=== PATIENT | female | born 1945 | race Caucasian/White ===

== ENCOUNTER → 2018-07-03 09:07 | Outpatient (CLI) | payer MEDICARE ==
[~2018-07-03] VITALS: Ht 157.5 cm; Wt 59.5 kg
--- NOTE | ~2018-07-03 | HEMODYNAMI ---
PATIENT:NOEMI ROBISON MEDICAL RECORD: [id number] : 47 LOCATION:[facility] ADMISSION DATE: 07/03/18 Generatedon:07/03/201811:25 Patient name: NOEMI ROBISON Patient #: [id number] SSN: DO B: 1945 Date of study: 07/03/2018 Page: Of Hemodynamic Procedure Report Patient Data Patient Demographics Procedure consent was obtained First Name: NOEMI Gender: Female Last Name: RICKI : 1945 Middle Initial: LUTHER Age: 72 year(s) Patient #: [id number] Race: Additional ID: [id number] Contact details [address]: [address] [place] [address] State: [place] City: [place] Zip code: [address] Admission Admission Data Admission Date: 07/03/2018 Admission Time: 9:07 Admit Source: Other Procedure Procedure Types Cath Procedure Diagnostic Procedure LHC LHC w/Coronaries w/Grafts PCI Procedure Coronary Stent Coronary Stent Initial x2 Procedure Description Procedure Date Procedure Date: 07/03/2018 Procedure Start Time: 11:01 Procedure End Time: 11:23 Procedure Staff Name Function Naresh Boone MD Performing Physician Heri Anne RT Monitor Addy Ross RT Scrub Sima Mcdaniel RN Nurse Procedure Data Cath Procedure Fluoroscopy Diagnostic fluoroscopy Total fluoroscopy Time: 6.7 time: 6.7 min min Diagnostic fluoroscopy Total fluoroscopy dose: 644 dose: 644 mGy mGy Contrast Material Contrast Material Type Amount (ml) Isovue 300 146 Entry Location Entry Primary Successful Side Size Upsize Upsize Entry Closure Succes sful Closure Location (Fr) 1 (Fr) 2 (Fr) Remarks Device Remarks Femoral Right 5 Fr 6 Fr Exoseal artery Short Estimated blood loss: 10 ml Diagnostic catheters Device Type Used For End Catheter Placement DIAGNOSTIC JL 4.0 5Fr Procedure catheter ([id number]) DIAGNOSTIC 3DRC 5Fr Procedure catheter ([id number]) DIAGNOSTIC AR2 MOD 5 Fr Procedure catheter ([id number]) Procedure Complications No complications Procedure Medications Medication Administration Route Dosage 0.9% NaCl I.V. 100 ml/hr Oxygen etCO2 Nasal cannula 2 l/min Lidocaine 2% added to field 20 Heparin Flush Bag added to field 2 bags (1000units/500ml NS) Versed I.V. 2 mg Fentanyl I.V. 50 mcg Versed I.V. 2 mg Fentanyl I.V. 50 mcg Heparin Bolus I.V. 4000 units Integrilin (Bolus I.V. 5.6 ml 2mg/ml) Plavix P.O. 600 mg Versed I.V. 1 mg Fentanyl I.V. 50 mcg Hemodynamics Rest Heart Rate: 83 (bpm) Pressure Samples Time Site Value (mmHg) Purpose Heart Use Rate(bpm) 11:03 AO 92/55(70) Snapshot 83 Snapshots Pre Cath Intra NCS Post Cath Vital Signs Time Heart Resp SPO2 etCO2 NIBP (mmHg) Rhythm Pain Sedation Rate (ipm) (%) (mmHg) Status Level (bpm) 10:47:36 67 16 96 40.9 123/75(104) NSR 0 (11) 10(A) , No pain 10:51:43 78 18 100 38.6 118/72(103) NSR 0 (11) 10(A) , No pain 10:55:49 78 12 98 37.8 114/70(90) NSR 0 (11) 10(A) , No pain 10:59:53 73 15 99 22.7 103/66(82) NSR 0 (11) 10(A) , No pain 11:03:52 67 15 96 14.3 97/71(87) NSR 0 (11) 10(A) , No pain 11:07:52 68 13 97 21.9 105/63(86) NSR 0 (11) 10(A) , No pain 11:11:58 70 10 98 21.9 99/58(74) NSR 0 (11) 9(A) , No pain 11:22:06 34 13 98 31.8 123/77(93) NSR 0 (11) 10(A) , No pain Medications Time Medication Route Dose Verified Delivered Reason Notes Effectiveness by by 10:59:34 Versed I.V. 2 mg Naresh Gao for sedation Paolo Mcdaniel RN 10:59:46 Fentanyl I.V. 50 Naresh Sima for sedation mcg Paolo Mcdaniel RN 11:03:05 0.9% NaCl I.V. 100 Naresh Sima used for ml/hr Paolo Mcdaniel physician assistant certified 11:03:12 Oxygen etCO2 2 Naresh Sima used for Nasal l/min Paolo Mcdaniel procedure cannula RN 11:03:17 Lidocaine 2% added 20ml Naresh Naresh for local to vial Paolo Boone MD anesthetic field 11:03:23 Heparin Flush added 2 Naresh Naresh used for Bag to bags Paolo Boone MD procedure (1000units/500ml field NS) 11:04:02 Versed I.V. 2 mg Naresh Sima for sedation Paolo Mcdaniel RN 11:04:11 Fentanyl I.V. 50 Naresh Sima for sedation mcg Paolo Mcdaniel RN 11:09:10 Heparin Bolus I.V. 4000 Naresh Sima for verif ied units Paolo Mcdaniel anticoagulation with Dr. HEBERT Boone 11:09:24 Integrilin I.V. 5.6 Naresh Sima for waste d (Bolus 2mg/ml) ml Paolo Mcdaniel antiplatelet 4.4mL RN therapy 11:09:45 Plavix P.O. 600 Naresh Sima for mg Paolo Mcdaniel antiplatelet RN therapy 11:09:55 Versed I.V. 1 mg Naresh Sima for sedation Paolo Mcdaniel RN 11:09:59 Fentanyl I.V. 50 Naresh Sima for sedation mcg Paolo Mcdaniel geophysical computer Log Time Note 10:38:13 Admit Source: Other 10:38:35 Diagnostic Cath status Elective 10:38:39 Heri Anne RT(R) sent for patient. Start room use. 10:38:40 Time tracking: Regular hours (M-F 7:00 - 5:00) 10:38:44 Plan of Care:Hemodynamics will remain stable., Cardiac rhythm will remain stable., Comfort level will be maintained., Respiratory function will remain adequate., Patient/ family verbilizes understanding of procedure., Procedure tolerated without complication., Recovers from procedure without complications.. 10:41:50 Patient received from Pre/Post Procedure Room to CCL 1 Alert and oriented. Tansferred to table in Supine position. 10:41:52 Warm blankets applied, and aruna hugger turned on for patient comfort. 10:41:52 Correct patient and procedure confirmed by team. 10:41:54 Signed procedure consent form obtained from patient. 10:41:54 ECG and BP/O2 sat monitors applied to patient. 10:46:21 Vital chart was started 10:49:40 Rhythm: sinus rhythm 10:49:42 Full Disclosure recording started 10:49:59 H&P Date Dictated: 06/28/2018 Within 30 days and on chart., H&P Addendum completed by physician on day of procedure. (MUST COMPLETE FOR ALL OUTPATIENTS). 10:50:01 Pre-procedure instructions explained to patient. 10:50:01 Pre-op teaching completed and patient verbalized understanding. 10:50:03 Family in patients room. 10:50:04 Patient NPO since Lunch. 10:50:07 Is the patient allergic to Iodine/contrast media? No. 10:50:19 Patient diabetic? No. 10:50:22 Previous problem with sedation/anesthesia? No ? 10:50:23 Snore? Yes 10:50:26 Sleep apnea? No 10:50:27 Deviated septum? No 10:50:28 Opens mouth fully? Yes 10:50:29 Sticks out tongue? Yes 10:50:34 Airway obstruction? Yes COPD 10:50:42 Dentures? Yes OUT 10:50:49 Is patient on blood thinner?Yes 10:57:55 Last dose of Warfarin was 06/29/18. 10:57:59 Pre procedure: right dorsailis pedis pulse 1+ Palpable, but thready & weak; easily obliterated 10:58:01 Patient pain scale 0/10 ?. 10:58:04 IV patent on arrival in left forearm with 0.9% NaCl at KVO. 10:58:06 Lab results completed and on chart. 10:58:08 Right groin area was prepped with chlora-prep and draped in sterile fashion 10:58:09 Alarms reviewed by R. N. 10:58:09 Sharps counted by scrub and verified by R.N. 10:58:10 --------ALL STOP TIME OUT------ 10:58:11 Final Timeout: patient, procedure, and site verified with staff and physician. All members of the team are in agreement. 10:58:12 Right groin site verified by team. 10:58:15 Maximum allowable Isovue 300 dose 300ml. Physician notified. (300ml for normal creatinines. For patients with creatinine of 1.7 or higher multiply weight(kg) x 5 divided by creatinine.) 10:58:20 Fire Safety Assessment: A--An alcohol-based skin anteseptic being used preoperatively., C--Open oxygen or nitrous oxide is being used., D--An ESU, laser, or fiber-optic light is being used. 10:58:23 Physical assessment completed. ASA score P 2 - A patient with mild systemic disease as per Naresh Boone MD. 10:58:26 Sedation plan: IV Moderate Sedation Medication:Versed, Fentanyl 10:59:34 Versed 2 mg I.V. was administered by Sima Mcdaniel RN; for sedation; 10:59:46 Fentanyl 50 mcg I.V. was administered by Sima Mcdaniel RN; for sedation; 11:01:07 Use device set Femoral Dx 11:01:09 Tegaderm 4 x 4 (1626W) opened to sterile field. 11:01:10 ACIST Manifold (79993) opened to sterile field. 11:01:11 ACIST Hand Control (19997) opened to sterile field. 11:01:11 ACIST Syringe (61736) opened to sterile field. 11:01:12 Bag Decanter () opened to sterile field. 11:01:12 Medline Cath Pack (CQCG06378) opened to sterile field. 11:01:14 DIAGNOSTIC WIRE .035 260cm J wire (007117) opened to sterile field. 11:01:19 SHEATH 5FR Point Arena (IBB010) opened to sterile field. 11:01:36 Procedure started. 11:01:40 Local anesthetic to right femoral artery with Lidocaine 2% by Naresh Boone MD.INITIAL ACCESS ONLY 11:03:01 A 5 Fr sheath was inserted into the Right Femoral artery 11:03:05 0.9% NaCl 100 ml/hr I.V. was administered by Sima Mcdaniel RN; used for procedure; 11:03:09 A DIAGNOSTIC JL 4.0 5Fr catheter ([id number]) was advanced over the wire and used for Procedure. 11:03:12 Oxygen 2 l/min etCO2 Nasal cannula was administered by Sima Mcdaniel RN; used for procedure; 11:03:14 LCA angiography performed. 11:03:17 Lidocaine 2% 20ml vial added to field was administered by Naresh Boone MD; for local anesthetic; 11:03:23 Heparin Flush Bag (1000units/500ml NS) 2 bags added to field was administered by Naresh Boone MD; used for procedure; 11:03:46 Catheter removed. 11:03:49 Use device set [facility] 11:03:51 SHEATH 6FR Point Arena (EQU357) opened to sterile field. 11:03:54 CHOICE PT Extra Support 182cm wire ([id number]) opened to sterile field. 11:03:58 INFLATOR Merit BasixCompak (ST9538) opened to sterile field. 11:04:02 Versed 2 mg I.V. was administered by Sima Mcdaniel RN; for sedation; 11:04:11 Fentanyl 50 mcg I.V. was administered by Sima Mcdaniel RN; for sedation; 11:04:15 A DIAGNOSTIC 3DRC 5Fr catheter ([id number]) was advanced over the wire and used for Procedure. 11:05:07 DE DIOS not grafted. 11:05:10 RCA angiography performed. 11:05:30 Catheter removed. 11:07:20 A DIAGNOSTIC AR2 MOD 5 Fr catheter ([id number]) was advanced over the wire and used for Procedure. 11:07:36 Unable to find grafts. SVG closed. 11:07:42 Catheter removed. 11:07:53 Sheath upsized to a 6 Fr Short. 11:08:03 6 Fr XBLAD 3.5 guide catheter was inserted over the wire 11:08:07 GUIDE 6FR XBLAD 3.5 catheter ([id number]) opened to sterile field. 11:09:10 Heparin Bolus 4000 units I.V. was administered by Sima Mcdaniel RN; for anticoagulation; verified with Dr. Boone 11:09:10 Wire advanced across lesion. 11:09:24 Integrilin (Bolus 2mg/ml) 5.6 ml I.V. was administered by Sima Mcdaniel RN; for antiplatelet therapy; wasted 4.4mL 11:09:33 Place stent Inflation Number: 1 A SOHA RX 3.5 x 15 stent ([id number]) was prepped and advanced across the Prox CX. The stent was deployed at 17 SADAF for 0:10 (min:sec). 11:09:45 Plavix 600 mg P.O. was administered by Sima Mcdaniel RN; for antiplatelet therapy; 11:09:55 Versed 1 mg I.V. was administered by Sima Mcdaniel RN; for sedation; 11:09:59 Fentanyl 50 mcg I.V. was administered by Sima Mcdaniel RN; for sedation; 11:10:31 Stent catheter was removed intact over wire. 11:10:31 Wire removed. 11:10:32 Guide catheter removed. 11:10:47 GUIDE 6FR AR 1.0 catheter ([id number]) opened to sterile field. 11:10:53 6 Fr AR 1 guide catheter was inserted over the wire 11:12:07 Guide Catheter removed. unable to cannulate vessel. 11:12:26 GUIDE 6FR 3DRC catheter ([id number]) opened to sterile field. 11:13:04 6 Fr 3DRC guide catheter was inserted over the wire 11:13:42 CPTXS wire advanced. 11:15:58 Wire advanced across lesion. 11:16:07 Place stent Inflation Number: 1 A SOHA RX 3.5 x 15 stent ([id number]) was prepped and advanced across the Prox RCA. The stent was deployed at 23 SADAF for 0:10 (min:sec). 11:16:49 Multiple inflations made at 21 Atms. 11:17:58 Stent catheter was removed intact over wire. 11:18:00 Wire removed. 11:18:00 Guide catheter removed. 11:18:16 EXOSEAL 6Fr (EX600) opened to sterile field. 11:18:34 Sheath removed intact; hemostasis achieved with Exoseal to the Right Femoral artery. 11:18:36 Procedure ended.(Physican Out) 11:21:13 Fluoroscopy time 06.70 minutes. 11:21:19 Fluoroscopy dose: 644 mGy 11:21:19 Flurop Dose total: 644 11:21:23 Contrast amount:Isovue 300 146ml. 11:21:25 Sharps counted by scrub and verified by R.N. 11:21:26 Insertion/operative site no bleeding no hematoma. 11:21:29 Post-op/insertion site Right Femoral artery dressed using a 4 x 4 and Tegaderm. 11:21:38 Post Procedure Pulses reassessed and unchanged 11:21:43 Post-procedure physical assessment completed. ASA score P 2 - A patient with mild systemic disease as per Naresh Boone MD. 11:21:46 Post procedure rhythm: unchanged. 11:22:03 Estimated blood loss: 10 ml 11:22:05 Post procedure instruction explained to patient.Patient verbalizes understanding. 11:22:06 Patient needs reinforcement of post procedure teaching. 11:22:16 Procedure type changed to Cath procedure, Diagnostic procedure, LHC, LHC w/Coronaries w/Grafts, PCI procedure, Coronary Stent, Coronary Stent Initial x2 11:22:17 Procedure and supply charges have been captured, reviewed, submitted and are correct. 11:22:22 Procedure Complication : No complications 11:23:05 Vital chart was stopped 11:23:05 See physician's report for complete and final results. 11:23:07 Report given to Pre/Post Procedure Room. 11:23:09 Patient transfered to Pre/Post Procedure Room with Stretcher. 11:23:11 Procedure ended. 11:23:11 Full Disclosure recording stopped 11:24:03 End room use (Document Last) Intervention Summary Intervention Notes Time ActionType Lesion and Equipment Used Action# Pressure Duration Attributes 11:09:33 Place stent Prox CX SOHA RX 3.5 x 1 17 00:10 15 stent ([id number]) 11:16:07 Place stent Prox RCA SOHA RX 3.5 x 1 23 00:10 15 stent ([id number]) Device Usage Item Name Manufacture Quantity Catalog Number Hospital Part Current M inimal Lot# / Charge Number Stock Stock Serial# Code Tegaderm 4 x 4 3M 1 [id number] [id number] [id number] 5 (1626W) ACIST Manifold Acist 1 52871 032388 526365 180320 5 (19068) Medical Systems Inc ACIST Hand Acist 1 67412 747592 538673 662791 5 Control Medical (14232) Systems Inc ACIST Syringe Acist 1 83235 978532 389215 184370 2 0 (66229) Medical Systems Inc Bag Decanter Microtek 1 054018 64462 140686 5 () Medical Inc. Medline Cath Medline 1 [id number] 217036 82918 511504 5 Pack ([id number]) DIAGNOSTIC St Alonso 1 483778 862995 078026 524346 3 0 WIRE .035 260cm J wire (831115) SHEATH 5FR Terumo 1 THG089 861052 880750 433291 5 Point Arena (AKN125) DIAGNOSTIC JL Cardinal 1 [id number] 933045 388798 125052 1 0 4.0 5Fr Health catheter (661087C) SHEATH 6FR Terumo 1 LLG002 049687 744760 658706 4 0 Point Arena (LXQ494) CHOICE PT Leivasy 1 [id number] 969472 186933 395302 5 Extra Support Scientific 182cm wire ([id number]) INFLATOR Merit Merit 1 QS8473 024481 903158 886109 1 5 [facility] HospitalWeb Design Giant Inc. [facility] ([id number]) DIAGNOSTIC Cardinal 1 [id number] 006942 196702 197129 9 3DRC 5Fr Health catheter (198802P) DIAGNOSTIC AR2 Cardinal 1 [id number] 582456 747806 290180 2 0 MOD 5 Fr Health catheter (158030E) GUIDE 6FR Cardinal 1 11325664 266499 623233 745789 1 0 XBLAD 3.5 Health catheter (19348894) SOHA RX 3.5 x Medtronic 2 [id number] 114626 5006990 366619 5 [id number] 15 stent [id number] ([id number]) GUIDE 6FR AR Medtronic 1 [id number] 368222 71096 850919 1 1.0 catheter ([id number]) GUIDE 6FR 3DRC Medtronic 1 [id number] 106696 460602 691361 1 catheter ([id number]) EXOSEAL 6Fr Cardinal 1 EX600 366952 783927 665028 1 0 (EX600) Health Signature Audit [place] Stage Time Signature Unsigned Intra-Procedure 07/03/2018 Heri Anne 11:25:04 AM RT(R) Signatures Monitor : Heri Anne RT Signature : Date : Time : [facility] [address] [facility] [address]
--- NOTE | ~2018-07-03 | OP ---
PATIENT NAME: NOEMI ROBISON MEDICAL RECORD: [id number] :47 LOCATION:D.CAT ADMISSION DATE: SURGEON: EVA HORNER MD DATE OF OPERATION: 07/03/2018 PROCEDURES: 1. PTCA and stent, left circumflex. 2. PTCA and stent, RCA. 3. Left heart catheterization. 4. Selective coronary angiography. 5. DE DIOS angiography. 6. Vein graft angiography. 7. Left ventriculogram. INDICATION: Angina and coronary artery disease. PROCEDURE IN DETAIL: After informed consent was obtained with detailed description of risks and benefits as well as alternative therapies, the patient elected to proceed with angiogram and angioplasty. The right femoral area was prepped and draped in normal sterile fashion. The right femoral artery was cannulated via modified Seldinger technique with placement of 6-Nepali sheath. All catheters were exchanged through this sheath. FINDINGS: Left ventriculogram was not performed secondary to prosthetic aortic valve. SELECTIVE CORONARY ANGIOGRAPHY: 1. Left main is with no significant angiographic disease. 2. Left anterior descending has moderate irregularities, but no flow-limiting stenosis. 3. Left circumflex has 80% in-stent restenosis in the proximal vessel. 4. Right coronary has 80% in-stent restenosis in the proximal vessel. 5. All vein grafts are closed. 6. DE DIOS is nongrafted. PTCA AND STENT OF THE LEFT CIRCUMFLEX: The stent used was a 3.5 x 15 mm Jeffrey, taken to 23 atmospheres. Result was 0% residual stenosis. PTCA AND STENT OF THE RCA: The stent used was a 3.5 x 15 mm Otter, taken to 23 atmospheres. Result was 0% residual stenosis. OVERALL IMPRESSION: Successful PTCA and stent of the left circumflex and the RCA, both going from 80% in-stent restenosis to 0% residual stenosis. TRANSINT:[id number] Voice Confirmation ID: [id number] DOCUMENT ID: [id number] EVA HORNER MD CC: [id number] DICTATION DATE: 07/03/18 1122 LOGISTICS PLANNER: 07/03/18 1133 [facility] [address] [place] [address]
[~2018-07-03 09:07] MED LIST: ATIVAN0.5 MG PO; BAYER CHEWABLE81 MG PO; BETAPACE 80 MG80 MG PO; COREG12.5 MG PO; COUMADIN4 MG PO; EFFEXOR100 MG PO; FOLATE0.4 MG PO; FUROSEMIDE40 MG PO; K-TAB10 MEQ PO; LEXAPRO20 MG PO; MERIBIN5 MG PO; PLAVIX75 MG PO; TRAZODONE HCL150 MG PO; WELLBUTRIN SR150 MG PO
[2018-07-03 09:37] VITALS: BP 120/70; Ht 157.5 cm; Wt 59.5 kg
[2018-07-03 09:59] LABS: HEMATOCRIT 34.1 % (36.0-48.0); HEMOGLOBIN 10.8 g/dL (12-16); LYMPHOCYTES 27.2 % (15-50); MCH 28.6 pg (26.0-34.0); MCHC 31.7 g/dL (31.0-37.0); MCV 90.5 fL (80.0-100.0); MEAN PLATELET VOLUME 9.3 fL (7.4-10.4); PLATELET COUNT 133 10x3/uL (130-400); RBC 3.77 10x6/uL (4.00-5.40); RDW 18.2 % (11.5-14.5)
[2018-07-03 10:05] LABS: ANION GAP 5.3 mmol/L (8-16); CALCIUM 8.9 mg/dL (8.5-10.1); CARBON DIOXIDE 37.5 mmol/L (21.0-32.0); CREATININE - SERUM 1.2 mg/dL (0.6-1.3); POTASSIUM - SERUM 3.8 mmol/L (3.5-5.1)
[2018-07-03 10:25] LABS: INR 1.52 (0.85-1.17); PROTIME 17.7 SECONDS (11.6-15.0)
--- NOTE | 2018-07-03 11:41 | NUR ---
RECIEVED TO ROOM VIA STRETCHER FROM DRILL RIG OPERATOR HELPER WITH 6 FR EXOSEAL R/GROIN CDI NO BLEEDING OR HEMATOMA NOTED. PATIENT DENIED CHEST PAIN ON ARRIVAL. HR 71 BP 114/60 INSTRUCTED PATIENT TO KEEP HEAD FLAT ON PILLOW WITH RLE STRAIGHT
--- NOTE | 2018-07-03 11:45 | NUR ---
6 FR EXOSEAL R/GROIN REMAINS CDI WITH NO BLEEDING NOTED. PATIENT RESPONDS TO VERBAL WITH CHEST PAIN DENIED. DAUGHTER AT BEDSIDE
--- NOTE | 2018-07-03 12:00 | NUR ---
DR HORNER AT BEDSIDE WITH PATIENT VERBALIZING BACK PAIN. ORDERS FOR NORCO X 1 WITH MEDICATION GIVEN ORDERED 1215 PATIENT VOIDS TO COLLECTION 300 CC CLEAR YELLOW URINE. BILATERAL GROINS ARE CDI. SANDWICH AND SODA TO BEDSIDE
--- NOTE | 2018-07-03 12:19 | NUR ---
DR HORNER AT BEDSIDE WITH PATIENT AND DAUGHTER. PATIENT COMPLAINS OF HEARTBURN. SANDWICH AND SODA TO BEDSIDE WITH FAMILY TO ASSIST. NAUSEA IS DENIED
--- NOTE | 2018-07-03 12:33 | NUR ---
PATIENT TOLERATING SANDWICH WITH WITH NAUSEA DENIED. VOICED RELIEF OF HEART BURN
--- NOTE | 2018-07-03 12:52 | NUR ---
6 FR EXOSEAL R/GROIN IS CDI WITH NO COMPLAINTS. PATIENT DENIED NEEDS
--- NOTE | 2018-07-03 13:31 | NUR ---
1305 PATIENT HEARD YELLING OUT LOUD ON ARRIVAL TO ROOM PATIENT IS THRASHING ABOUT IN BED PRESSURE HELD TO R/GROIN WITH ALL STAFF AT BEDSIDE. PATIENT DENIED PAIN STATED I FEEL LIKE I AM HAVING A DRUG OVERDOSE. I CANT BE STILL PATIENT CRYING AND RESTLESS. DR HORNER NOTIFED WITH ORDERS FOR ATIVAN TO BE GIVEN IV. 1310 ATIVAN GIVEN DIRECTED. ALL STAFF AT BEDSIDE EKG TO CHART WITH RESULTS TO DR HORNER. PATIENT VERBLIZED NEED TO URINATE BUT STATED SHE WAS UNABLE TO URINATE LYING DOWN. HOOPER CATH INSERTED VIA MOTION PICTURE SCENE BUILDER WITH OUTPUT OF 800 CC CLEAR YELLOW URINE TO COLLECTION. 1330 PATIENT CALM AND RESTING R/GROIN IS CDI
--- NOTE | 2018-07-03 13:57 | NUR ---
PATIENT RESTING QUIETLY WITH VSS RESPIRATIONS ARE EVEN AND UNLABORED. NO DISTRESS NOTED
--- NOTE | 2018-07-03 14:35 | NUR ---
PATIENT CONTINUES TO SLEEP WITH VSS NO DISTRESS NOTED. 6 FR EXOSEAL R/GROIN IS CDI
--- NOTE | 2018-07-03 14:47 | NUR ---
REPOSITIONED TO [facility] UP 30 FOR COMFORT. PATIENT DENIED PAIN OR NEEDS 6 FR EXOSEAL R/GROIN IS CDI
--- NOTE | 2018-07-03 15:07 | NUR ---
VERBAL AND WRITTEN DISCHARGE GONE OVER WITH PATIENT AND FAMILY. 6 FR EXOSEAL R/GROIN IS CDI WITH CHEST PAIN DENIED.
--- NOTE | 2018-07-03 15:18 | NUR ---
PIV REMOVED WITH DRESSING APPLIED. 6 FR EXOSEAL R/GROIN IS CDI PATIENT DENIED PAIN OR NEED. UP TO GET DRESSED FOR DISCHARGE HOME WITH FAMILY
--- NOTE | 2018-07-03 15:28 | NUR ---
PATIENT LEFT VIA WC TO PARKING FOR TRANSPORT HOME CHEST PAIN DENIED AND 6 FR EXOSEAL R/GROIN IS CDI
== END | disposition home or self-care (01) ==
LOC: D.CATH 09:07
PROVIDERS: ATTEND Internal Medicine Interventional Cardiology
DX: I25.119 Atherosclerotic heart disease of native coronary artery with unspecified angina pectoris (principal); T82.855A Stenosis of coronary artery stent, initial encounter; I25.719 Atherosclerosis of autologous vein coronary artery bypass graft(s) with unspecified angina pectoris; Z01.812 Encounter for preprocedural laboratory examination
CPT/HCPCS: 93459; C9600 ×2

== ENCOUNTER 2018-08-30 23:43 | Inpatient (IN) | payer MEDICARE ==
[~2018-08-30] VITALS: Ht 157.5 cm; Wt 65.1 kg
[2018-08-31] VITALS (25 sets, daily range): BP systolic 89–131; BP diastolic 48–84; Ht 157.5 cm; Wt 65.1 kg
[2018-08-31 00:22] LABS: BASOPHILS 0.7 % (0-2); EOSINOPHILS 2.1 % (0-7); LYMPHOCYTES 26.5 % (15-50); MCH 22.3 pg (26.0-34.0); MCHC 29.2 g/dL (31.0-37.0); MCV 76.5 fL (80.0-100.0); MEAN PLATELET VOLUME 8.5 fL (7.4-10.4); MONOCYTES 12.5 % (2-11); NEUTROPHILS 58.2 % (40-80); PLATELET COUNT 147 10x3/uL (130-400); RBC 2.51 10x6/uL (4.00-5.40); RDW 18.4 % (11.5-14.5); WBC 2.9 10x3/uL (4.8-10.8)
[2018-08-31 00:24] LABS: HEMATOCRIT 19.2 % (36.0-48.0); HEMOGLOBIN 5.6 g/dL (12-16)
[2018-08-31 00:52] LABS: APTT 50.7 SECONDS (22.8-39.4); INR 2.29 (0.85-1.17); PROTIME 24.5 SECONDS (11.6-15.0)
[2018-08-31 01:06] LABS: CREATININE - SERUM 1.4 mg/dL (0.6-1.3)
[2018-08-31 01:14] LABS: CKMB 1.1 U/L (0.0-3.6); MAGNESIUM - SERUM 1.9 mg/dL (1.8-2.4)
[2018-08-31 01:18] LABS: TROPONIN-I 0.168 ng/mL (0.000-0.060)
[2018-08-31 01:25] LABS: ANION GAP 10.2 mmol/L (8-16); BILIRUBIN - TOTAL 1.33 mg/dL (0.2-1.3); CALCIUM 8.5 mg/dL (8.5-10.1); CARBON DIOXIDE 31.6 mmol/L (21.0-32.0); CREATININE - SERUM 1.4 mg/dL (0.6-1.3); POTASSIUM - SERUM 3.8 mmol/L (3.5-5.1); PROTEIN - SERUM 6.8 g/dL (6.4-8.2)
[2018-08-31 01:35] LABS: % SATURATION 4 % (15-55); IRON 18 ug/dl (35-150); TOTAL IRON BIND CAPACITY 385 ug/dl (260-445); UNSAT IRON BIND CAPACITY 367 ug/dl (150-375)
--- NOTE | 2018-08-31 04:10 | NUR ---
RECEIVED TO ROOM 2308 VIA ED BED ACCOMPANIED BY ED STAFF. TRANSFERRED TO ICU BED. RECEIVED AWAKE AND ALERT. ORIENTED X 4. SPEECH CLEAR . DENIES PAIN. MONITORS CONNECTED TO PATIENT WITH ALARMS SET. ADMIT ASSESSMENT COMPLETED PER FLOW SHEET WITH NO ACUTE DISTRESS OBSERVED. CALL LIGHT IN REACH AND ABLE TO UTILIZE TO MAKE NEEDS KNOWN.
--- NOTE | 2018-08-31 05:00 | NUR ---
RESTING WITH EYES CLOSED. EASILY ROUSED AND ALERT. NO ACUTE DISTRESS OBSERVED
--- NOTE | 2018-08-31 05:50 | NUR ---
SPOKE WITH MARIETTA VALENCIA APN WITH. INFORMED OF PATIENTS ARRIVAL AND NEW ORDERS RECEIVED.
--- NOTE | 2018-08-31 07:20 | NUR ---
REPORT CALLED TO ADELAIDA AMBROSIO IN CVICU
--- NOTE | 2018-08-31 07:30 | NUR ---
PATIENT BELONGINGS LIST: ONE PAIR OF BRANDT OPEN TOE/OPEN HEEL HOUSE SHOES ONE PAIR OF BLACK VELCRO FASTEN LADONNA BRAND SHOES (4) INCONTINENCE BRIEFS (1) PAIR OF PINK UNDERWEAR WITH BLACK/WHITE POLKA DOTS (1) PACKAGE OF UNOPENED MEDICATION CONTAINING 10 mEQ OF POTASSIUM CHLORIDE AND (2) 150 MG TRAZADONE (3) FEMININE NAPKINS (1) TUBE OF OPEN/USED CARMEX LIP TREATMENT (1) PAIR OF BLACK GLASSES WITH RHINESTONES (1) FLASHLIGHT (1) BLACK HAIR (1) BLUE LIGHT SUBSTATION MAINTENANCE TECHNICIAN (2) PACKAGES OF OPENED "FRUIT ADVENTURE" TIC TACS (1) OPENED/USED TUBE OF POLIGRIP (1) OPENED/USED TUBE OF CREST TUBE PASTE (2) BLACK KNEE HIGH STOCKINGS (1) BLUSH BRUSH (1) MEDSPA HAND AND BODY LOTION (1) COLGATE TOOTHPASTE TRAVEL SIZE (1) COMB (1) SMALL BOTTLE OF RED DOOR PERFUME (1) PORTABLE OXYGEN MONITOR (1) BOTTLE OF BIOTENE SPRAY (1) PAIR OF BLUE PANTS WITH BLACK LEOPARD PRINT (1) LEOPARD PRINT SHIRT (1) SMALL OXYGEN TANK IN BLACK ARMIJO (1) BLACK CELL PHONE (1) BLACK FRUIT STUFFER (1) HURLEY WALLET (1) SILVER NECKLACE WITH DROP PENDANT PATIENT REQUESTS TO KEEP ALL BELONGINGS AT BEDSIDE MEDICATION BAGGED AND PHARMACY CALLED TO PARAGLIDING INSTRUCTOR
--- NOTE | 2018-08-31 08:37 | NUR ---
TRANSFERED TO CVICU ROOM CV5
[2018-08-31] MEDS ORDERED: DURAGESIC1 PATCH .3 TRANSDERM (08:40)
--- NOTE | 2018-08-31 08:44 | NUR ---
PT ARRIVED TO ROOM CV05. ALERT, ORIENTED, CONVERSANT. PRBC ADMINISTRATION IN PROGRESS.
--- NOTE | 2018-08-31 10:54 | NUR ---
PT RESTING QUIETLY AT THIS TIME. NO APPARENT DISTRESS. BED LOW. CALL LIGHT IN REACH.
--- NOTE | 2018-08-31 11:15 | NUR ---
DR SCHUMACHER BY TO SEE PATIENT. OK FOR CLEAR LIQUIDS
--- NOTE | 2018-08-31 12:08 | NUR ---
PT C/O HEADACHE. CONTACTED PHYSICIAN ON-CALL
[2018-08-31 12:30] LABS: HEMATOCRIT 29.7 % (36.0-48.0); HEMOGLOBIN 9.2 g/dL (12-16)
[2018-08-31 12:35] LABS: CKMB 0.7 U/L (0.0-3.6); CREATINE KINASE 46 UL (21-215)
[2018-08-31 12:39] LABS: TROPONIN-I 0.115 ng/mL (0.000-0.060)
[2018-08-31 15:08] LABS: PATH REVIEW PERIPHERAL SMEAR REVIEWED
--- NOTE | 2018-08-31 16:40 | NUR ---
DINNER TRAY PROVIDED. PT C/O HEADACHE AGAIN. LET HER KNOW IT WOULD STILL BE 2 HOURS BEFORE I CAN GIVE HER ANOTHER DOSE OF TYLENOL. PT OK WITH WAITING. CALL LIGHT IN REACH.
--- NOTE | 2018-08-31 18:30 | NUR ---
PT HAS BEEN GIVEN DOSE OF TYLENOL FOR HEADACHE. DENIES ANY ADDITIONAL NEEDS. CALL LIGHT IN REACH.
--- NOTE | 2018-08-31 19:30 | NUR ---
REPORT RECEIVED, INITIAL ASSESSMENT COMPLETE PER FLOW SHEET, PT AAOx4 DENIES PAIN OR NEEDS AT THIS TIME, REPOSITIONED FOR COMFORT, VSS, WILL CONTINUE TO MONITOR
[2018-08-31 20:57] LABS: HEMOGLOBIN 9.8 g/dL (12-16)
--- NOTE | 2018-08-31 23:00 | NUR ---
REASSESSMENT COMPLETE SEE FLOW SHEET, NO ACUTE CHANGE OR DISTRESS, PT SLEEPING, VSS, DENIES NEEDS AT THIS TIME, WILL CONTINUE TO ASSESS
[2018-09-01] VITALS (19 sets, daily range): BP systolic 86–116; BP diastolic 49–81
--- NOTE | 2018-09-01 01:30 | NUR ---
x1 CUP CHICKEN BROTH GIVEN PER REQUEST
--- NOTE | 2018-09-01 03:00 | NUR ---
REASSESSMENT COMPLETE SEE FLOW SHEET, NO ACUTE CHANGE NOTED, PT SLEEPING ABLE TO WAKE EASY, AAOx4, DENIES PAIN OR NEEDS AT THIS TIME, VSS
[2018-09-01 06:23] LABS: HEMATOCRIT 28.5 % (36.0-48.0); HEMOGLOBIN 8.9 g/dL (12-16)
[2018-09-01 06:36] LABS: ANION GAP 5.5 mmol/L (8-16); CALCIUM 8.6 mg/dL (8.5-10.1); CARBON DIOXIDE 33.4 mmol/L (21.0-32.0); CREATININE - SERUM 1.2 mg/dL (0.6-1.3); MAGNESIUM - SERUM 1.9 mg/dL (1.8-2.4)
[2018-09-01 06:59] LABS: POTASSIUM - SERUM 2.9 mmol/L (3.5-5.1)
[2018-09-01 07:17] LABS: HAPTOGLOBIN <10 mg/dL (34-200)
[2018-09-01 07:49] LABS: MCHC 31.3 g/dL (31.0-37.0); MEAN PLATELET VOLUME 9.8 fL (7.4-10.4); PLATELET COUNT 138 10x3/uL (130-400); RDW 18.6 % (11.5-14.5); WBC 2.5 10x3/uL (4.8-10.8)
[2018-09-01 09:44] LABS: LYMPHOCYTES 22 % (15-50); MONOCYTES 13 % (2-11); NEUTROPHILS 64 % (40-80)
[2018-09-01 09:45] LABS: ANISOCYTOSIS OCC; HYPOCHROMASIA 1+; PLATELET ESTIMATE NORMAL; TARGET CELLS OCC
[2018-09-01 10:15] LABS: FOLATE (FOLIC ACID) - SERUM >20.0 ng/mL (>3.0)
[2018-09-01 11:32] LABS: HEMATOCRIT 29.1 % (36.0-48.0); HEMOGLOBIN 9.2 g/dL (12-16)
[2018-09-01 13:14] LABS: ERYTHROPOIETIN 707.7 mIU/mL (2.6-18.5)
--- NOTE | 2018-09-01 14:20 | NUR ---
Nutrition Follow Up: Chart reviewed. Pt continues on clear liquid diet. BM: 09/01/18 Labs reviewed Meds noted including Lasix Rec advancing CHELSY as medically feasible. RD following.
--- NOTE | 2018-09-01 19:30 | NUR ---
REPORT REC'D AND CARE ASSUMED, PT RESTING QUIETLY LYING IN BED EYES CLOSED, O2 @ 1.5 LITERS VIA NC, AWAKENS TO VERBAL STIMULI, ORIENTED X 4, RIGHT FOREARM PIV WITH DRIED BLOOD UNDER DRSG, SALINE LOCKED, LEFT A/C PIV SALINE LOCKED, PT DENIES HEADACHE AT THIS TIME, ABDOMEN DISTENDED AND TENDER, PT REPORTS PASSING GAS AND STOOL, DISCOLORATION TO LOWER LEGS, PP WEAK, SR UP X 2, BED IN LOW POSITION, PT REQUESTING ICE CHIPS, ICE CHIPS PROVIDED, PT DENIES FURTHE NEEDS, CALL LIGHT IN REACH.
--- NOTE | 2018-09-01 20:00 | NUR ---
PT ASSISTED UP TO BEDSIDE COMMODE, SM LOOSE BROWN STOOL NOTED, PT ASSISTED BACK TO BED, COMPLAINS OF FEELING "LIKE I AM GOING CRAZY". PT ASKING ABOUT NICOTINE PATCH, NO ORDER NOTED ON CHART, WILL CALL MD.
--- NOTE | 2018-09-01 20:10 | NUR ---
SPOKE WITH DR. SCHUMACHER REGARDING NICOTINE PATCH, NEW ORDERS REC'D.
--- NOTE | 2018-09-01 20:45 | NUR ---
PT ASSSISTED TO BSC, PT PASSED ONLY GAS AT THIS TIME, PARTIAL LINEN CHANGE PROVIDED, PT BACK TO BED WITHOUT DIFFICULTY.
--- NOTE | 2018-09-01 21:25 | NUR ---
EVENING MEDS GIVEN ORDERED, PT REQUESTING TO SIT ON SIDE OF BED, ASSISTED TO DO, PT INSTRUCTED NOT TO GET UP WITHOUT ASSISTANCE, PT VERBAIZES UNDERSTANDING, CALL LIGHT IN REACH.
--- NOTE | 2018-09-01 21:45 | NUR ---
PT ASSISTED BACK TO BED AND UP IN BED FOR COMFORT, PT DENIES PAIN OR NEEDS, SR UP X 2, BED IN LOW POSITION, CALL LIGHT IN REACH.
--- NOTE | 2018-09-01 23:00 | NUR ---
PT RESTING IN BED, EYES CLOSED AND RESP EVEN AND UNLABORED, VSS, WILL CONT TO MONITOR FOR CHANGES.
[2018-09-02] VITALS (8 sets, daily range): BP systolic 94–127; BP diastolic 47–77
--- NOTE | 2018-09-02 02:30 | NUR ---
PT AWAKE REQUESTING ICE CHIPS FOR A DRY MOUTH, ICE CHIPS PROVIDED, PT DENIES FURTHER NEEDS.
[2018-09-02 05:49] LABS: HEMATOCRIT 30.1 % (36.0-48.0); HEMOGLOBIN 9.3 g/dL (12-16)
[2018-09-02 06:10] LABS: CALCIUM 8.8 mg/dL (8.5-10.1); CARBON DIOXIDE 28.8 mmol/L (21.0-32.0); CREATININE - SERUM 1.2 mg/dL (0.6-1.3); POTASSIUM - SERUM 3.8 mmol/L (3.5-5.1)
--- NOTE | 2018-09-02 11:00 | NUR ---
VS OBTAINED. ASKING WHEN IS GOING TO BE HERE TO DISCHARGE HER. STATES SHE IS READY TO GO HOME.
--- NOTE | 2018-09-02 11:34 | NUR ---
0730: ASSESSMENT COMPLETE. REMOVED FROM BEDSIDE MONITOR AND PLACED ON TELEMENTRY. 0745: RUFUS DECKER. O2 CONTS @ 1.5LPM. INSTRUCTED TO GET UP AND AMBULATE IN ROOM.
[2018-09-02 13:29] LABS: HEMATOCRIT 31.9 % (36.0-48.0); HEMOGLOBIN 9.7 g/dL (12-16)
--- NOTE | 2018-09-02 16:20 | NUR ---
1605: SALINE LOCKS IN R AC AND L FOREARM. 1615: AMBULATORY IN ROOM WITH 1.5 LITERS O2 ON. CM SHOWS SINUS TACHY RATE 107 AND SP02 97%.
--- NOTE | 2018-09-02 16:46 | NUR ---
1640: DISCHARGE PAPERWORK REVIEWED WITH PATIENT REGARDING MEDICATIONS AND FOLLOW UP DR. SAMUELS. 1643: DISCHARGED HOME WITH DAUGHTER IN LAW. ESCORTED TO FRONT DOOR VIA .
--- NOTE | 2018-09-02 16:51 | MORECARE ---
CASE MANAGEMENT DISCHARGE SUMMARY PATIENT: NOEMI ROBISON UNIT: [id number] ADM DATE: 08/31/18 AGE: 73 : 46 SEX: F [facility] AUTHOR: DANIELLE,DOC PHYSICIAN: REFERRING PHYSICIAN: FACUNDO SCHUMACHER MD DATE OF SERVICE: 09/02/18 Discharge Plan Patient Name: NOEMI ROBISON Facility: [facility]:[place] : 1945 Planned Disposition: Home with Home Health Anticipated Discharge Date: 09/02/18 Discharge Date: 09/02/2018 Expected LOS: 2 Initial Reviewer: [email or web address] Initial Review Date: 08/31/2018 Generated: 09/02/18 5:51 pm Comments DCP- Discharge Planning Updated by [email or web address]: Radha Grady on 09/02/18 3:[address] CM was notified by primary nurse of patient discharge. CM spoke briefly with the patient via telephone after review of her medical record. CM to visit with the patient in her room. She states she is weak, has a headache, but denies any chest pressure or other discomfort. She does not wish to stay an additional day. Patient has been approved for discharge by safety consultant MD's, DR Silva and DR Mak. Dr Mak visited with the patient while isabella was completing the assessment. The patient's daughter in law, Sofia Jenkins lives with her. Pt states she can assist. Patient has transportation to home. She has 3 steps with a post to assist getting into the door. She has home oxygen therapy, stationary and portable units from [facility]. No nebulizer. Has shower chair. Denies any additional DME. Patient ambulated in the room. Her pulse was 106-107. O2 sat was 97%. Tolerated activity well. Patient states DR Grijalva, her PCP, was to arrange home health for her. Discussed with DR Mak. CM will fax clinical to DR Grijalva's office on Tuesday for home health services. Order obtained by hospitalist for F/U with PCP for home health. Patient thinks she had [facility] previously. [facility] refused to provide fax number. CM will call office on [place]. Meds are received via [facility] order. Patient discharged to home. DCPIA - Discharge Planning Initial Assessment Updated by [id number]: Radha Turpin on 09/02/18 4:28 pm * Is the patient Alert and Oriented? Yes * How many steps to enter\exit or inside your home? 3 steps * PCP DR Bledsoe,. [place], [place] * Pharmacy [facility] * Preadmission Environment Home with Family * ADLs Independent * Equipment Oxygen Shower Chair * Other Equipment Stationary oxygen unit and portable unit DME provided by [facility] * List name and contact numbers for known caregivers / representatives who currently or will assist patient after discharge: Sofia Jenkins - dtr in law- [phone] * Verbal permission to speak to the caregivers and representatives has been obtained from the patient. No * Community resources currently utilized None * Please name any agencies selected above. N/A Has had home health in the past. Cannot recall provider * Additional services required to return to the preadmission environment? Yes * Can the patient safely return to the preadmission environment? Yes * Has this patient been hospitalized within the prior 30 days at any hospital? No Coverage Notice Reviewer: [id number] - Radha Turpin Notice Issued Date-Time: 09/02/2018 16:22 Notice Type: IM Discharge Notice Notice Delivered To: Patient Relationship to Patient: Self Recreation Activities Coordinator Name: Delivery Method: HAND - Hand Delivered Sosa Days: Prior Verbal Notification: Recipient Understood Notice: Yes Recipient Signature: Yes Med Rec Note Co-signed by Attending: Coverage Notice Comment: CM discussed discharge IMM. Patient had no questions or concerns. She wants to be discharged to home today. Discharge IMM served. Copy to the patient. Copy to the hard cover chart. Patient Name: NOEMI ROBISON Page [phone] at 1651 All edits/amendments must be made on the electronic document DICTATION DATE: 09/02/181649 GENERAL CAR SUPERVISOR YARD: KALIE 09/02/181649 RPT#: [id number] DC DATE:09/02/18 STATUS: DIS IN [facility] [address] [facility] [place] [place] [address] END OF REPORT
--- NOTE | 2018-09-04 09:43 | MORECARE ---
CASE MANAGEMENT DISCHARGE SUMMARY PATIENT: NOEMI ROBISON UNIT: [id number] ADM DATE: 08/31/18 AGE: 73 : 46 SEX: F ROOM/BED: [facility] AUTHOR: DANIELLE,DOC PHYSICIAN: REFERRING PHYSICIAN: FACUNDO SCHUMACHER MD DATE OF SERVICE: 09/04/18 Discharge Plan Patient Name: NOEMI ROBISON Facility: [facility]:[place] : 1945 Planned Disposition: Home with Home Health Anticipated Discharge Date: 09/02/18 Discharge Date: 09/02/2018 Expected LOS: 2 Initial Reviewer: [email or web address] Initial Review Date: 08/31/2018 Generated: 09/04/18 10:42 am Comments DCP- Discharge Planning Updated by [email or web address]: Radha Turpin on 09/04/18 8:[address] Telephone call to Dr Grijalva's office [phone]. Spoke with An. Faxed clinical and requested home health for the patient. DCP- Discharge Planning Updated by [id number]: Radha Turpin on 09/02/18 3:[address] CM was notified by primary nurse of patient discharge. CM spoke briefly with the patient via telephone after review of her medical record. CM to visit with the patient in her room. She states she is weak, has a headache, but denies any chest pressure or other discomfort. She does not wish to stay an additional day. Patient has been approved for discharge by lead sales consultant MD's, DR Silva and DR Mak. Dr Mak visited with the patient while isabella was completing the assessment. The patient's daughter in law, Sofia Jenkins lives with her. Pt states she can assist. Patient has transportation to home. She has 3 steps with a post to assist getting into the door. She has home oxygen therapy, stationary and portable units from [facility]. No nebulizer. Has shower chair. Denies any additional DME. Patient ambulated in the room. Her pulse was 106-107. O2 sat was 97%. Tolerated activity well. Patient states DR Grijalva, her PCP, was to arrange home health for her. Discussed with DR Mak. CM will fax clinical to DR Grijalva's office on Tuesday for home health services. Order obtained by hospitalist for F/U with PCP for home health. Patient thinks she had [facility] previously. [facility] refused to provide fax number. CM will call office on Tuesday. Meds are received via [facility] order. Patient discharged to home. DCPIA - Discharge Planning Initial Assessment Updated by [id number]: Radha Turpin on 09/02/18 4:28 pm * Is the patient Alert and Oriented? Yes * How many steps to enter\exit or inside your home? 3 steps * PCP DR Bledsoe,. [place] * Pharmacy [facility] * Preadmission Environment Home with Family * ADLs Independent * Equipment Oxygen Shower Chair * Other Equipment Stationary oxygen unit and portable unit DME provided by [facility] * List name and contact numbers for known caregivers / representatives who currently or will assist patient after discharge: Sofia lozoyar in law- [phone] * Verbal permission to speak to the caregivers and representatives has been obtained from the patient. No * Community resources currently utilized None * Please name any agencies selected above. N/A Has had home health in the past. Cannot recall provider * Additional services required to return to the preadmission environment? Yes * Can the patient safely return to the preadmission environment? Yes * Has this patient been hospitalized within the prior 30 days at any hospital? No Coverage Notice Reviewer: [id number] - Radha Turpin Notice Issued Date-Time: 09/02/2018 16:22 Notice Type: IM Discharge Notice Notice Delivered To: Patient Relationship to Patient: Self Steel Unloader Name: Delivery Method: HAND - Hand Delivered Sosa Days: Prior Verbal Notification: Recipient Understood Notice: Yes Recipient Signature: Yes Med Rec Note Co-signed by Attending: Coverage Notice Comment: CM discussed discharge IMM. Patient had no questions or concerns. She wants to be discharged to home today. Discharge IMM served. Copy to the patient. Copy to the hard cover chart. Last DP export: 09/02/18 3:51 pm Patient Name: NOEMI ROBISON Page [phone] at 0943 All edits/amendments must be made on the electronic document DICTATION DATE: 09/04/18 0942 EMBEDDED FIRMWARE ENGINEER: KALIE 09/04/18 0942 RPT#: [id number] DC DATE:09/02/18 STATUS: DIS IN [facility] [address] [place] [address] END OF REPORT
--- NOTE | 2018-09-04 09:51 | MORECARE ---
CASE MANAGEMENT DISCHARGE SUMMARY PATIENT: NOEMI ROBISON UNIT: [id number] ADM DATE: 08/31/18 AGE: 73 : 46 SEX: F ROOM/BED: [facility] AUTHOR: DANIELLE,DOC PHYSICIAN: REFERRING PHYSICIAN: FACUNDO SCHUMACHER MD DATE OF SERVICE: 09/04/18 Discharge Plan Patient Name: NOEMI ROBISON Facility: [facility]:[place] : 1945 Planned Disposition: Home with Home Health Anticipated Discharge Date: 09/02/18 Discharge Date: 09/02/2018 Expected LOS: 2 Initial Reviewer: [id number] Initial Review Date: 08/31/2018 Generated: 09/04/18 10:51 am Comments DCP- Discharge Planning Updated by [id number]: Radha Turpin on 09/04/18 8:[address] TELEPHONED THE PATIENT. NO ANSWER. LEFT VOICE MAIL STATING I HAD CONTACTED DR MONAHAN'S OFFICE REGARDING ADMISSION AND DISCHARGE. REQUESTED HOME HEALTH REFERRAL. DCP- Discharge Planning Updated by [id number]: Radha Turpin on 09/04/18 8:[address] Telephone call to Dr Monahan's office [phone]. Spoke with An. Faxed clinical and requested home health for the patient. DCP- Discharge Planning Updated by [id number]: Radha Turpin on 09/02/18 3:[address] CM was notified by primary nurse of patient discharge. CM spoke briefly with the patient via telephone after review of her medical record. CM to visit with the patient in her room. She states she is weak, has a headache, but denies any chest pressure or other discomfort. She does not wish to stay an additional day. Patient has been approved for discharge by oim consultant MD's, DR Silva and DR Mak. Dr Mak visited with the patient while isabella was completing the assessment. The patient's daughter in law, Sofia Jenkins lives with her. Pt states she can assist. Patient has transportation to home. She has 3 steps with a post to assist getting into the door. She has home oxygen therapy, stationary and portable units from [facility]. No nebulizer. Has shower chair. Denies any additional DME. Patient ambulated in the room. Her pulse was 106-107. O2 sat was 97%. Tolerated activity well. Patient states DR Monahan, her PCP, was to arrange home health for her. Discussed with DR Mak. CM will fax clinical to DR Monahan's office on Tuesday for home health services. Order obtained by hospitalist for F/U with PCP for home health. Patient thinks she had [facility] previously. [facility] refused to provide fax number. CM will call office on Tuesday. Meds are received via [facility] order. Patient discharged to home. DCPIA - Discharge Planning Initial Assessment Updated by [id number]: Radha Turpin on 09/02/18 4:28 pm * Is the patient Alert and Oriented? Yes * How many steps to enter\exit or inside your home? 3 steps * PCP DR Bledsoe,. [place] * Pharmacy [facility] * Preadmission Environment Home with Family * ADLs Independent * Equipment Oxygen Shower Chair * Other Equipment Stationary oxygen unit and portable unit DME provided by [facility] * List name and contact numbers for known caregivers / representatives who currently or will assist patient after discharge: Sofia Jenkins - oscar in law- [phone] * Verbal permission to speak to the caregivers and representatives has been obtained from the patient. No * Community resources currently utilized None * Please name any agencies selected above. N/A Has had home health in the past. Cannot recall provider * Additional services required to return to the preadmission environment? Yes * Can the patient safely return to the preadmission environment? Yes * Has this patient been hospitalized within the prior 30 days at any hospital? No Coverage Notice Reviewer: [id number] - Radha Turpin Notice Issued Date-Time: 09/02/2018 16:22 Notice Type: IM Discharge Notice Notice Delivered To: Patient Relationship to Patient: Self Brick Maker Name: Delivery Method: HAND - Hand Delivered Sosa Days: Prior Verbal Notification: Recipient Understood Notice: Yes Recipient Signature: Yes Med Rec Note Co-signed by Attending: Coverage Notice Comment: CM discussed discharge IMM. Patient had no questions or concerns. She wants to be discharged to home today. Discharge IMM served. Copy to the patient. Copy to the hard cover chart. Last DP export: 09/04/18 8:42 am Patient Name: NOEMI ROBISON Page [phone] at 0951 All edits/amendments must be made on the electronic document DICTATION DATE: 09/04/18949 SR ACCOUNT EXECUTIVE: KALIE 09/04/18949 RPT#: [id number] DC DATE:09/02/18 STATUS: DIS IN [facility] [address] [place] [address] END OF REPORT
--- NOTE | 2018-09-04 13:07 | MORECARE ---
CASE MANAGEMENT DISCHARGE SUMMARY PATIENT: NOEMI ROBISON UNIT: [id number] ADM DATE: 08/31/18 AGE: 73 : 46 SEX: F [facility] AUTHOR: DANIELLE,DOC PHYSICIAN: REFERRING PHYSICIAN: FACUNDO SCHUMACHER MD DATE OF SERVICE: 09/04/18 Discharge Plan Patient Name: NOEMI ROBISON Facility: [facility]:[place] : 1945 Planned Disposition: Home with Home Health Anticipated Discharge Date: 09/02/18 Discharge Date: 09/02/2018 Expected LOS: 2 Initial Reviewer: [email or web address] Initial Review Date: 08/31/2018 Generated: 09/04/18 2:07 pm Comments DCP- Discharge Planning Updated by [id number]: Radha Turpin on 09/04/18 8:[address] TELEPHONED THE PATIENT. NO ANSWER. LEFT VOICE MAIL STATING I HAD CONTACTED DR MONAHAN'S OFFICE REGARDING ADMISSION AND DISCHARGE. REQUESTED HOME HEALTH REFERRAL. DCP- Discharge Planning Updated by [email or web address]: Radha Turpin on 09/04/18 8:[address] Telephone call to Dr Monahan's office [phone]. Spoke with An. Faxed clinical and requested home health for the patient. DCP- Discharge Planning Updated by [id number]: Radha Turpin on 09/02/18 3:[address] CM was notified by primary nurse of patient discharge. CM spoke briefly with the patient via telephone after review of her medical record. CM to visit with the patient in her room. She states she is weak, has a headache, but denies any chest pressure or other discomfort. She does not wish to stay an additional day. Patient has been approved for discharge by product safety consultant MD's, DR Silva and DR Mak. Dr Mak visited with the patient while isabella was completing the assessment. The patient's daughter in law, Sofia Jenkins lives with her. Pt states she can assist. Patient has transportation to home. She has 3 steps with a post to assist getting into the door. She has home oxygen therapy, stationary and portable units from [facility]. No nebulizer. Has shower chair. Denies any additional DME. Patient ambulated in the room. Her pulse was 106-107. O2 sat was 97%. Tolerated activity well. Patient states DR Monahan, her PCP, was to arrange home health for her. Discussed with DR Mak. CM will fax clinical to DR Monahan's office on Tuesday for home health services. Order obtained by hospitalist for F/U with PCP for home health. Patient thinks she had [facility] previously. [facility] refused to provide fax number. CM will call office on Tuesday. Meds are received via [facility] order. Patient discharged to home. DCPIA - Discharge Planning Initial Assessment Updated by [email or web address]: Radha Turpin on 09/02/18 4:28 pm * Is the patient Alert and Oriented? Yes * How many steps to enter\exit or inside your home? 3 steps * PCP DR Bledsoe,. [place] * Pharmacy [facility] * Preadmission Environment Home with Family * ADLs Independent * Equipment Oxygen Shower Chair * Other Equipment Stationary oxygen unit and portable unit DME provided by [facility] * List name and contact numbers for known caregivers / representatives who currently or will assist patient after discharge: Sofia Jenkins - oscar in law- [phone] * Verbal permission to speak to the caregivers and representatives has been obtained from the patient. No * Community resources currently utilized None * Please name any agencies selected above. N/A Has had home health in the past. Cannot recall provider * Additional services required to return to the preadmission environment? Yes * Can the patient safely return to the preadmission environment? Yes * Has this patient been hospitalized within the prior 30 days at any hospital? No Coverage Notice Reviewer: [id number] - Radha Turpin Notice Issued Date-Time: 09/02/2018 16:22 Notice Type: IM Discharge Notice Notice Delivered To: Patient Relationship to Patient: Self Dust Collector Ore Crushing Name: Delivery Method: HAND - Hand Delivered Sosa Days: Prior Verbal Notification: Recipient Understood Notice: Yes Recipient Signature: Yes Med Rec Note Co-signed by Attending: Coverage Notice Comment: CM discussed discharge IMM. Patient had no questions or concerns. She wants to be discharged to home today. Discharge IMM served. Copy to the patient. Copy to the hard cover chart. Last DP export: 09/04/18 8:51 am Patient Name: NOEMI ROBISON Page [phone] at 1307 All edits/amendments must be made on the electronic document DICTATION DATE: 09/04/18 1307 RANGELAND MANAGEMENT SPECIALIST: KALIE 09/04/18 1307 RPT#: [id number] DC DATE:09/02/18 STATUS: DIS IN [facility] [address] [place] [address] END OF REPORT
== END 2018-09-02 16:43 | disposition home health service (06) | DRG 811 ==
LOC: D.ER 23:43 → D.CVICU 08-31 01:11 → D.ICU 08-31 01:11 → D.CVICU 08-31 08:39
PROVIDERS: Emergency Medicine; Internal Medicine Hematology & Oncology; ADMIT Emergency Medicine; ATTEND Emergency Medicine
DX: D50.9 Iron deficiency anemia, unspecified (principal); I50.23 Acute on chronic systolic (congestive) heart failure; I25.10 Atherosclerotic heart disease of native coronary artery without angina pectoris; I95.9 Hypotension, unspecified; J44.9 Chronic obstructive pulmonary disease, unspecified; F41.8 Other specified anxiety disorders; K59.00 Constipation, unspecified; G89.29 Other chronic pain; Z79.01 Long term (current) use of anticoagulants; F17.200 Nicotine dependence, unspecified, uncomplicated; I48.0 Paroxysmal atrial fibrillation; Z95.2 Presence of prosthetic heart valve; D70.9 Neutropenia, unspecified; R79.89 Other specified abnormal findings of blood chemistry; I10 Essential (primary) hypertension; I11.0 Hypertensive heart disease with heart failure

== ENCOUNTER 2018-09-15 15:18 | Emergency (ER) | payer MEDICARE ==
[~2018-09-15] VITALS: Ht 157.5 cm; Wt 59.1 kg
[~2018-09-15 15:18] MED LIST changes: +DURAGESIC1 PATCH .3 TRANSDERM
[2018-09-15 15:26] VITALS: Ht 157.5 cm; Wt 59.1 kg
[2018-09-15 15:57] LABS: BASOPHILS 0.3 % (0-2); EOSINOPHILS 2.5 % (0-7); HEMATOCRIT 30.2 % (36.0-48.0); HEMOGLOBIN 9.3 g/dL (12-16); LYMPHOCYTES 20.5 % (15-50); MCH 26.3 pg (26.0-34.0); MCHC 30.8 g/dL (31.0-37.0); MCV 85.6 fL (80.0-100.0); MEAN PLATELET VOLUME 9.3 fL (7.4-10.4); MONOCYTES 11.7 % (2-11); PLATELET COUNT 165 10x3/uL (130-400); RBC 3.53 10x6/uL (4.00-5.40); RDW 26.7 % (11.5-14.5); WBC 3.7 10x3/uL (4.8-10.8)
[2018-09-15 16:30] LABS: INR 2.79 (0.85-1.17); PROTIME 28.7 SECONDS (11.6-15.0)
[2018-09-15 16:35] LABS: ALBUMIN 2.8 g/dL (3.4-5.0); ANION GAP 8.2 mmol/L (8-16); BILIRUBIN - TOTAL 0.84 mg/dL (0.2-1.3); CALCIUM 8.4 mg/dL (8.5-10.1); CARBON DIOXIDE 33.2 mmol/L (21.0-32.0); CREATININE - SERUM 1.1 mg/dL (0.6-1.3); POTASSIUM - SERUM 3.4 mmol/L (3.5-5.1); PROTEIN - SERUM 6.6 g/dL (6.4-8.2)
[2018-09-15 19:33] VITALS: BP 143/61
== END 2018-09-15 19:33 | disposition home or self-care (01) ==
LOC: D.ER 15:18
PROVIDERS: Emergency Medicine
DX: D64.9 Anemia, unspecified (principal)

== ENCOUNTER 2018-10-20 15:25 | Inpatient (IN) | payer MEDICARE ==
[2018-10-20] VITALS (8 sets, daily range): BP systolic 70–121; BP diastolic 48–67; BMI 23.9
[~2018-10-20] VITALS: Ht 160 cm; Wt 81.1 kg
[2018-10-20 15:56] LABS: BASOPHILS 0.6 % (0-2); EOSINOPHILS 2.1 % (0-7); HEMATOCRIT 20.4 % (36.0-48.0); LYMPHOCYTES 22.9 % (15-50); MCH 25.5 pg (26.0-34.0); MCHC 29.9 g/dL (31.0-37.0); MCV 85.4 fL (80.0-100.0); MEAN PLATELET VOLUME 8.9 fL (7.4-10.4); MONOCYTES 10.1 % (2-11); NEUTROPHILS 64.3 % (40-80); PLATELET COUNT 149 10x3/uL (130-400); RBC 2.39 10x6/uL (4.00-5.40); RDW 23.8 % (11.5-14.5); WBC 3.3 10x3/uL (4.8-10.8)
[2018-10-20 16:05] LABS: HEMOGLOBIN 6.1 g/dL (12-16)
[2018-10-20 16:09] LABS: ALBUMIN 2.1 g/dL (3.4-5.0); ALKALINE PHOSPHATASE 93 U/L (46-116); ALT (SGPT) 12 U/L (10-68); BILIRUBIN - TOTAL 0.72 mg/dL (0.2-1.3); CALC OSMOLALITY 280 mosm/kg (275-300); CARBON DIOXIDE 36.2 mmol/L (21.0-32.0); CHLORIDE - SERUM 103 mmol/L (98-107); CREATININE - SERUM 1.2 mg/dL (0.6-1.3); GLUCOSE 96 mg/dL (74-106); POTASSIUM - SERUM 3.7 mmol/L (3.5-5.1); PROTEIN - SERUM 5.2 g/dL (6.4-8.2); SODIUM 139 mmol/L (136-145); UREA NITROGEN 22 mg/dL (7-18); eGFR NON AFRICAN AMERICAN 47 mL/min (90-120)
[2018-10-20 16:12] LABS: AMYLASE - SERUM 20 U/L (25-115); LIPASE 99 U/L (73-393)
[2018-10-20 16:15] LABS: TROPONIN-I < 0.017 ng/mL (0.000-0.060)
--- NOTE | 2018-10-20 16:34 | NUR ---
THIS NURSE CALLED MEDICAL RADIATION THERAPIST FOR SUICIDE RISK SCREENING QUESTIONAIRE. RELAYED THAT PT IS NOT CURRENTLY SUICIDAL, AND SCREENING INDICATED THAT PT WOULD NEED BEHAVIORAL HEALTH CONSULT AT DISCHARGE. MEDICAL RADIATION THERAPIST, ZAKI REPORTS THAT PT WOULD NEED BEHAVIORAL HEALTH RESOURCES AT DISCHARGE.
[2018-10-20 16:36] LABS: INR 1.97 (0.85-1.17); PROTIME 21.7 SECONDS (11.6-15.0)
[2018-10-20 16:59] LABS: APPEARANCE CLEAR (CLEAR); BILIRUBIN NEGATIVE (NEGATIVE); COLOR YELLOW (YELLOW); GLUCOSE NEGATIVE (NEGATIVE); KETONE NEGATIVE (NEGATIVE); NITRITE NEGATIVE (NEGATIVE); PROTEIN NEGATIVE (NEGATIVE)
--- NOTE | 2018-10-20 18:00 | NUR ---
NS 500ML BAG REMOVED FROM PYXIS FOR ADMINISTRATION OF ORDERED BLOOD PRODUCTS.
--- NOTE | 2018-10-20 19:02 | NUR ---
HAND OFF REPORT GIVEN TO HEBERT LOREDO
--- NOTE | 2018-10-20 19:50 | NUR ---
RECEIVED PT FROM ER VIA STRETCHER. PT ALERT AND ORIENTED X4. IRRITABLE AND WEAK. O2 @ 2L/NC. SOB WITH MIN EXERTION. RESP IRREG. REPRORTS ABD PAIN 7 ON PAIN SCALE. REPORTS BLACK TARRY STOOLS AND NAUSEA. ABD DISTENDED, SOFT. 1ST UNIT OF PRBCS TRANSFUSING AT THIS TIME. CRISTHIAN ALARM ON. CL IN REACH.
--- NOTE | 2018-10-20 21:10 | NUR ---
2ND UNIT OF PRBCS STARTED. PT IS HYPOTENSIVE. B/P 80S/40S. STILL ALERT.
--- NOTE | 2018-10-20 21:25 | NUR ---
B/P 70/48. NO ADVERSE REACTION NOTED TO PRBC TRANSFUSION. STILL ALERT. RAPID RESPONSE CALLED DUE TO HYPOTENSION. PAGED XIOMARA HICKS.
--- NOTE | 2018-10-20 22:40 | NUR ---
REPORT CALLED TO PANTERA IN ICU. PT TO BE TRANSFERRED TO RM 2304.
--- NOTE | 2018-10-20 23:15 | NUR ---
RECEIVED PT TO ROOM 2304 ACCOMPANIED BY MED SURG STAFF. KRYSTINA ZAMORA IN ROOM CONVERSING WITH PT REGARDING HISTORY. VSS.
--- NOTE | 2018-10-20 23:15 | NUR ---
PT TAKEN TO ICU VIA STRETCHER. CHART SENT WITH PT. 2ND UNIT OF PRBCS TRANSFUSING AT THIS TIME. PT TRANSFERRED SELF TO BED WITH STAFF ASSIST.
[2018-10-20 23:55] LABS: HEMATOCRIT 27.1 % (36.0-48.0); HEMOGLOBIN 8.5 g/dL (12-16)
[2018-10-21] VITALS (23 sets, daily range): BP systolic 83–125; BP diastolic 48–73; BMI 26.7
--- NOTE | 2018-10-21 01:20 | NUR ---
WARM BROTH PROVIDED PER REQUEST, PT DENIES ANY OTHER NEEDS AT THIS TIME, VSS.
[2018-10-21 03:14] LABS: BASOPHILS 0.3 % (0-2); EOSINOPHILS 2.3 % (0-7); HEMATOCRIT 25.9 % (36.0-48.0); HEMOGLOBIN 8.1 g/dL (12-16); IMMATURE GRANULOCYTES 0.3 % (0-5); LYMPHOCYTES 20.4 % (15-50); MCH 26.9 pg (26.0-34.0); MCHC 31.3 g/dL (31.0-37.0); MEAN PLATELET VOLUME 9.3 fL (7.4-10.4); MONOCYTES 14.5 % (2-11); NEUTROPHILS 62.2 % (40-80); PLATELET COUNT 121 10x3/uL (130-400); RBC 3.01 10x6/uL (4.00-5.40); RDW 19.4 % (11.5-14.5)
[2018-10-21 03:24] LABS: ANION GAP 2.2 mmol/L (8-16); C-REACTIVE PROTEIN 0.5 mg/dL (0.0-0.9); CALCIUM 7.7 mg/dL (8.5-10.1); CARBON DIOXIDE 36.4 mmol/L (21.0-32.0); CREATININE - SERUM 1.2 mg/dL (0.6-1.3); MAGNESIUM - SERUM 1.8 mg/dL (1.8-2.4); PHOSPHOROUS 3.3 mg/dL (2.5-4.9); POTASSIUM - SERUM 3.6 mmol/L (3.5-5.1)
--- NOTE | 2018-10-21 03:30 | NUR ---
REASSESSMENT PER FLOWSHEET, NO ACUTE CHANGES NOTED AT THIS TIME, CONT POC.
--- NOTE | 2018-10-21 05:50 | NUR ---
PT RESTING IN BED WITH EYES CLOSED, VSS.
--- NOTE | 2018-10-21 07:41 | NUR ---
PT REQUESTED BED GOVEA TO VOID. WHEN ATTEMPTED TO VOID, NO VOID NOTED. PT STATED SHE COULD NOT VOID. BLADDER DISTENDED. WILL NOTIFY PHYSICIAN FOR FURTHER ORDERS.
--- NOTE | 2018-10-21 09:17 | NUR ---
DR BAZAN PAGED REGARDING CONSULT.
--- NOTE | 2018-10-21 11:34 | NUR ---
HOOPER PLACED AT THIS TIME PER PHYSICIAN ORDERS. PER STERILE PROCEDURE. 16 MONGOLIAN. CLEAR YELLOW URINE FLOWING IN TO CLOSED CONTAINER, 700ML TOTAL. NO ACUTE DISTRESS NOTED. WILL CONTINUE PLAN OF CARE.
--- NOTE | 2018-10-21 12:08 | NUR ---
PER DR SAMPSON MONAE TO RESTART FENTANYL PATCH AT HOME DOSE AND TRANSFER TO FLOOR.
[2018-10-21 12:24] LABS: HEMATOCRIT 27.2 % (36.0-48.0); HEMOGLOBIN 8.5 g/dL (12-16)
[2018-10-21 12:32] LABS: INR 1.62 (0.85-1.17); PROTIME 18.6 SECONDS (11.6-15.0)
--- NOTE | 2018-10-21 12:51 | NUR ---
PER DR BRADEN, KEEP PT IN UNIT.
--- NOTE | 2018-10-21 14:52 | NUR ---
UP IN BED WATCHING TV AT THIS TIME. NO ACUTE DISTRESS NOTED. VSS. WILL CONTINUE PLAN OF CARE.
--- NOTE | 2018-10-21 16:20 | NUR ---
CHG BATH PERFORMED BY PT USING HIPICLENS. HOOPER CARE ALSO PROVIDED. NO ACUTE DISTRESS NOTED. WILL CONTINUE PLAN OF CARE.
--- NOTE | 2018-10-21 18:18 | NUR ---
UP IN BED WATCHING TV AT THIS TIME. NO ACUTE DISTRESS NOTED. VSS. WILL CONTINUE PLAN OF CARE.
[2018-10-21 18:22] LABS: HEMATOCRIT 28.1 % (36.0-48.0); HEMOGLOBIN 8.6 g/dL (12-16)
--- NOTE | 2018-10-21 19:00 | NUR ---
REPORT RECEIVED INITIAL ASSESSMENT COMPLETED. PT AWAKE ORIENTED FOLLOWS COMMANDS. CM READING SR-ST ALARMS ON AND AUDIBLE. RESP SHALLOW ENCOURAGED PT TO TCDB. PT STATES SHE IS ANXIOUS AND NEEDS A CIGARETTE PT ABLE TO REPOSITION SELF NO DISTRESS NOTED AT THIS TIME. BED LOW CALL LIGHT IN REACH
--- NOTE | 2018-10-21 20:45 | NUR ---
PT CRYING LOUDLY ASKING FOR HER XANAX AND NICOTINE PATCH. PAGED SAMPSON SEE ORDERS.
--- NOTE | 2018-10-21 23:00 | NUR ---
REASSESSMENT MADE PT RESTING QUIETLY WITH EYES CLOSED AWAKENS EASILY STATES SHE FEELS MUCH BETTER. CPOC
[2018-10-22] VITALS (24 sets, daily range): BP systolic 76–121; BP diastolic 36–82
--- NOTE | 2018-10-22 03:00 | NUR ---
REASSESSMENT MADE,. PT DENIES NEEDS RESTING WELL CPOC
[2018-10-22 04:48] LABS: ALBUMIN 1.8 g/dL (3.4-5.0); ANION GAP 5.4 mmol/L (8-16); BILIRUBIN - TOTAL 1.14 mg/dL (0.2-1.3); CALCIUM 7.6 mg/dL (8.5-10.1); CARBON DIOXIDE 34.1 mmol/L (21.0-32.0); MAGNESIUM - SERUM 1.7 mg/dL (1.8-2.4); PHOSPHOROUS 3.1 mg/dL (2.5-4.9); POTASSIUM - SERUM 3.5 mmol/L (3.5-5.1); PROTEIN - SERUM 4.7 g/dL (6.4-8.2)
[2018-10-22 07:51] LABS: HEMATOCRIT 26.1 % (36.0-48.0); HEMOGLOBIN 7.9 g/dL (12-16); MCH 26.3 pg (26.0-34.0); MCHC 30.3 g/dL (31.0-37.0); MEAN PLATELET VOLUME 9.4 fL (7.4-10.4); PLATELET COUNT 126 10x3/uL (130-400); RDW 19.9 % (11.5-14.5); WBC 3.4 10x3/uL (4.8-10.8)
--- NOTE | 2018-10-22 08:52 | NUR ---
PER DR BAZAN, RECHECK H&H AT 1600 AND IF H&H DROPS ANY THEN TRANSFUSE 2 U PRBC.
[2018-10-22 09:07] LABS: BASOPHILS 1 % (0-2); EOSINOPHILS 2 % (0-7); HYPOCHROMASIA 2+; LYMPHOCYTES 19 % (15-50); MONOCYTES 3 % (2-11); NEUTROPHILS 75 % (40-80); PLATELET ESTIMATE DECREASED
--- NOTE | 2018-10-22 10:50 | NUR ---
LYING IN BED RESTING AT THIS TIME. NO ACUTE DISTERSS NOTED. RESPIRAIONS STEADY AND UNLABORED. VSS. WILL CONTINUE PLAN OF CARE.
--- NOTE | 2018-10-22 12:02 | NUR ---
UP IN BED WATCHING TV AT THIST TIME. NO ACUTE DISTRESS NOTED. WILL CONTINUE PLAN OF CARE.
--- NOTE | 2018-10-22 14:05 | NUR ---
RESTING WITH EYES CLOSED, RESPIRATIONS STEADY AND UNLABORED. AWAKENS WHEN SPOKEN TO. NO ACUTE DISTRESS NOTED. CALL LIGHT IN REACH. WILL CONTINUE PLAN OF CARE.
--- NOTE | 2018-10-22 14:18 | NUR ---
BED BATH OFFERED AT THIS TIME, PT REFUSED STATING NOT TODAY. NO ACUTE DISTRESS NOTED. WILL CONTINUE PLAN OF CARE.
[2018-10-22 16:01] LABS: HEMATOCRIT 28.6 % (36.0-48.0); HEMOGLOBIN 8.6 g/dL (12-16)
--- NOTE | 2018-10-22 16:29 | NUR ---
UP IN BED AWAKE AT THIS TIME. DENIES ANY NEEDS. NO ACUTE DISTRESS NOTED. WILL CONTINUE PLAN OF CARE.
--- NOTE | 2018-10-22 18:09 | NUR ---
UP IN BED AWAKE. DENIES ANY NEEDS. WILL CONTINUE PLAN OF CARE.
--- NOTE | 2018-10-22 19:00 | NUR ---
REPORT RECEIVED. INITIAL ASSESSMENT COMPLETED. PT AWAKE ALERT AND ORIENTED WATCHING TELEVISION. NO DISTRESS NOTED DENIES NEEDS JUST WANTS TO MAKE SURE SHE GETS HER NIGHTIME HOME MEDS. RESP EVEN LABORED WITH EXERTION. ON 2LPM NC O2 WITH SATS OF 95%. ABD DISTENDED NOT TENDER PT STATES BUT SHE IS READY TO EAT SOMETHING. SKIN W/D NO DISRESS NOTED CM INTACT READING SR-ST NO ECTOPIC BEATS AT THIS TIME ALARMS ON AND AUDIBLE. BED LOW POSITION CALL LIGHT IN REACH
--- NOTE | 2018-10-22 23:00 | NUR ---
REASSESSMENT COMPLETE PT RESTING WELL. WHEN PT IS SLEEPING HYPOTENSIVE WITH SBP DOWN TO 90'S. AWAKENS EASILY ORIENTED DENIES NEEDS AT THIS TIME CPOC
[2018-10-23] VITALS (12 sets, daily range): BP systolic 84–115; BP diastolic 56–74
--- NOTE | 2018-10-23 03:00 | NUR ---
REASSESSMENT MADE PT TIRED OF NOT BEING ABLE TO EAT AND DRINK WHAT SHE LIKES AFTER INFORMING HER SHE COULD NOT HAVE COFFEE SINCE SHE HAS CLEAR LIQUID DIET ORDERED. INFORMED TO SPEAK TO PHYSICIANS TODAY WITH ROUNDS
[2018-10-23 04:24] LABS: ANION GAP 5.9 mmol/L (8-16); BILIRUBIN - TOTAL 0.78 mg/dL (0.2-1.3); CALCIUM 7.6 mg/dL (8.5-10.1); CREATININE - SERUM 1.1 mg/dL (0.6-1.3); MAGNESIUM - SERUM 1.8 mg/dL (1.8-2.4); PHOSPHOROUS 2.9 mg/dL (2.5-4.9); POTASSIUM - SERUM 3.9 mmol/L (3.5-5.1); PROTEIN - SERUM 4.9 g/dL (6.4-8.2)
--- NOTE | 2018-10-23 05:00 | NUR ---
COWORKER ANSWERED PTS CALL LIGHT SHE ASKED AGAIN IF SHE COULD HAVE COFFEE. INFORMED UNABLE TO AT THIS TIME SHE IS ON CLEAR LIQUID DIET
--- NOTE | 2018-10-23 07:00 | NUR ---
SHIFT ASSESSMENT COMPLETED. PT CARE ASSUMED. MONITORS ON AND WORKING, VITALS STABLE. PT AWAKE AND ALERT, CALL LIGHT WITHIN REACH, WILL CONTINUE TO OBSERVE.
--- NOTE | 2018-10-23 09:00 | NUR ---
OBTAINED CONSENTS FOR EGD PER DR MATTHEW. PT AWAKE AND ALERT, MONITORS ON AND WORKING, VITALS STABLE, WILL CONTINUE TO OBSERVE.
--- NOTE | 2018-10-23 09:11 | NUR ---
Nutrition follow-up: Pt NPO for EGD today Labs reviewed Wt: 165# RDN following.
--- NOTE | 2018-10-23 10:00 | NUR ---
EGD COMPLETED, PT TOLERATED WELL. ORDERS REC'D TO TRANSFER PT TO FLOOR.
--- NOTE | 2018-10-23 12:11 | NUR ---
PT TO ROOM 2223 FROM ICU VIA BED. PT IS WITHOUT DISTRESS.ORIENTATION TO ROOM.CALL LIGHT IN REACH
[2018-10-23 14:08] LABS: ANA REFLEX - DIRECT Negative (Negative)
--- NOTE | 2018-10-23 19:14 | NUR ---
EATING DINNER,WITHOUT DISTRESS.CONT PLAN OF CARE
--- NOTE | 2018-10-24 | NUR ---
ASSESSMENT PER FLOWSHEET. IV PATENT LEFT ARM OF NS AT 50CC'S/HR SITE CLEAR. HOOPER TO BEDSIDE DRAINAGE WITH YELLOW URINE. BOTH LEGS DISCOLORED. PPP+ABDOMEN DISTENDED. BS PRESENT. REFUSES SCD'S. BED ALARM ON.
[2018-10-24 00:29] VITALS: BP 94/62
[2018-10-24 03:06] LABS: HEPATITIS C ANTIBODY 0.2 S/CO RAT (0.0-0.9)
[2018-10-24 04:31] VITALS: BP 110/64
[2018-10-24 06:22] LABS: BASOPHILS 0.3 % (0-2); EOSINOPHILS 4.1 % (0-7); HEMOGLOBIN 8.7 g/dL (12-16); IMMATURE GRANULOCYTES 0.3 % (0-5); LYMPHOCYTES 21.1 % (15-50); MEAN PLATELET VOLUME 9.2 fL (7.4-10.4); MONOCYTES 14.4 % (2-11); NEUTROPHILS 59.8 % (40-80); PLATELET COUNT 125 10x3/uL (130-400); RBC 3.22 10x6/uL (4.00-5.40); RDW 20.2 % (11.5-14.5); WBC 3.7 10x3/uL (4.8-10.8)
[2018-10-24 06:37] LABS: MCV 90.1 fL (80.0-100.0)
[2018-10-24 06:52] LABS: ALBUMIN 1.9 g/dL (3.4-5.0); ANION GAP 6.4 mmol/L (8-16); BILIRUBIN - TOTAL 0.65 mg/dL (0.2-1.3); CARBON DIOXIDE 32.5 mmol/L (21.0-32.0); MAGNESIUM - SERUM 1.8 mg/dL (1.8-2.4); PRE-ALBUMIN 10.8 mg/dL (18.0-35.7); PROTEIN - SERUM 4.9 g/dL (6.4-8.2); THYROID STIMULATING HORMONE 12.2 uIU/mL (0.36-3.74)
[2018-10-24 06:53] LABS: POTASSIUM - SERUM 4.9 mmol/L (3.5-5.1)
[2018-10-24 08:32] VITALS: BP 110/67
--- NOTE | 2018-10-24 09:00 | NUR ---
ASSESSMENT PER FLOW SHEET. PT IS WITHOUT DISTRESS.FALL PREVENTION IN PLACE WITH BED ALARM.
--- NOTE | 2018-10-24 12:42 | MORECARE ---
CASE MANAGEMENT DISCHARGE SUMMARY PATIENT: NOEMI ROBISON UNIT: [id number] ADM DATE: 10/20/18 AGE: 73 : 47 SEX: F ROOM/BED: D.2223 AUTHOR: DANIELLE,DOC PHYSICIAN: REFERRING PHYSICIAN: BRIGETTE BRADEN MD DATE OF SERVICE: 10/24/18 Discharge Plan Patient Name: NOEMI ROBISON Facility: [facility]:[place] : 1945 Planned Disposition: Home Anticipated Discharge Date: Discharge Date: Expected LOS: Initial Reviewer: [email or web address] Initial Review Date: 10/24/2018 Generated: 10/24/18 1:41 pm Comments DCP- Discharge Planning Updated by [email or web address]: Naomie Reed on 10/24/18 11:[address] Patient Name: NOEMI ROBISON Admission Status: ER Accout number: [id number] Admission Date: 10-20-2018 : 1945 Admission Diagnosis:ACUTE KIDNEY FAILURE, UNSPECIFIED Attending: BRIGETTE BRADEN Current LOS: 4 Anticipated DC Date: Planned Disposition: Home Primary Insurance: [facility] [employer] [employer] Discharge Planning Comments: CM met with patient to complete initial dc planning assessment. CM educated patient on the CM role and verbal consent given by patient to complete assessment. CM verified patient's address, phone number, and emergency contact phone numbers. Patient lives at home with family and reports She is independent in hER care. At discharge patient plans to return home and feels this is a safe discharge. CM discussed availability of home health, rehab services, and medical equipment. Patient denied known discharge needs at this time.. . CM will continue to follow and will assist as needed with dc plans/needs. [employer] Sales: Naomie Reed DCPIA - Discharge Planning Initial Assessment Updated by [id number]: Naomie Reed on 10/24/18 12:40 pm * Is the patient Alert and Oriented? Yes * How many steps to enter\exit or inside your home? * PCP TANIYA * Pharmacy [facility] * Preadmission Environment Home with Family * ADLs Independent * Equipment Oxygen * Verbal permission to speak to the caregivers and representatives has been obtained from the patient. N/A * Additional services required to return to the preadmission environment? No * Can the patient safely return to the preadmission environment? Yes * Has this patient been hospitalized within the prior 30 days at any hospital? No Patient Name: NOEMI ROBISON Page [phone] at 1242 All edits/amendments must be made on the electronic document DICTATION DATE: 10/24/18 124 PRINTING ENGINEER: KALIE 10/24/18 1241 RPT#: [id number] DC DATE: STATUS: ADM IN [facility] [address] [place] [address] END OF REPORT
[2018-10-24 12:57] LABS: INR 1.46 (0.85-1.17); PROTIME 17.1 SECONDS (11.6-15.0)
[2018-10-24 13:15] VITALS: BP 102/63
--- NOTE | 2018-10-24 16:36 | NUR ---
OT NOTE: PT COMPLETED BED MOB WITH CGA. PT COMPLETED SIT TO STAND AND ADL MOB WITH MIN A. PT HAS ABDOMINAL PAIN. NURSING AWARE. PT COMPLETED SIMPLE GROOMING TASKS WITH SET UP. THANK YOU, JUAN VALDEZ
[2018-10-24 17:33] VITALS: BP 99/70
--- NOTE | 2018-10-24 17:50 | NUR ---
PT GOT CHOKED ON HAMBURGER AT DINNER.SUCTION TO ROOM,BUT PT WAS COUGHING AND TALKING. STATES," SHE IS OK,IT WENT DOWN WRONG PIPE." MONITOR
--- NOTE | 2018-10-24 18:04 | NUR ---
RUFUS VÁSQUEZ'D WITH 550CC OF CONCENTRATED URINE IN BAG
--- NOTE | 2018-10-24 18:55 | NUR ---
REMAINS WITHOUT DISTRESS.CONT PLAN OF CARE
--- NOTE | 2018-10-24 20:00 | NUR ---
ASSESSMENT PER FLOWSHEET. IV PATENT LEFT ARM OF NS AT 50CC'S/HR SITE CLEAR. REFUSES SCD'S. SR UP X2 CALL LIGHT WITHIN REACH CRISTHIAN MAT TO BED YELLOW SAFETY MEASURES IN USE.
[2018-10-24 20:19] VITALS: BP 106/59
--- NOTE | 2018-10-24 21:30 | NUR ---
MEDS GIVEN PER MAR.
--- NOTE | 2018-10-24 23:00 | NUR ---
UP WITH HELP TO BR VOIDED AND HAD BM. SPECIMEN OBTAINED AND SENT TO LAB FOR OCCULT BLOOD.
--- NOTE | 2018-10-25 | NUR ---
EYES CLOSED RESPIRATIONS WITH EASE AND UNLABORED.
[2018-10-25 00:58] VITALS: BP 108/67
--- NOTE | 2018-10-25 02:30 | NUR ---
UP TO BR VOIDED. ASSISTED BACK TO BED SR UP X2 CALL LIGHT WITHIN EACH.
--- NOTE | 2018-10-25 04:23 | NUR ---
RESING QUIETLY DENIES NEEDS.
[2018-10-25 04:54] VITALS: BP 98/53
[2018-10-25 07:02] LABS: ALBUMIN 1.8 g/dL (3.4-5.0); ANION GAP 7.1 mmol/L (8-16); BILIRUBIN - TOTAL 0.59 mg/dL (0.2-1.3); CALCIUM 8.1 mg/dL (8.5-10.1); CARBON DIOXIDE 30.1 mmol/L (21.0-32.0); CREATININE - SERUM 0.9 mg/dL (0.6-1.3); MAGNESIUM - SERUM 1.9 mg/dL (1.8-2.4); PHOSPHOROUS 2.9 mg/dL (2.5-4.9); POTASSIUM - SERUM 4.2 mmol/L (3.5-5.1); PROTEIN - SERUM 4.7 g/dL (6.4-8.2)
[2018-10-25 07:08] LABS: APTT 40.4 SECONDS (22.8-39.4); INR 1.4 (0.85-1.17); PROTIME 16.6 SECONDS (11.6-15.0)
[2018-10-25 07:26] LABS: BASOPHILS 0.3 % (0-2); EOSINOPHILS 2.5 % (0-7); HEMATOCRIT 26.5 % (36.0-48.0); IMMATURE GRANULOCYTES 0.3 % (0-5); LYMPHOCYTES 15.7 % (15-50); MCH 26.8 pg (26.0-34.0); MCHC 30.2 g/dL (31.0-37.0); MCV 88.9 fL (80.0-100.0); MEAN PLATELET VOLUME 9.1 fL (7.4-10.4); MONOCYTES 13.2 % (2-11); PLATELET COUNT 126 10x3/uL (130-400); RBC 2.98 10x6/uL (4.00-5.40); RDW 20.3 % (11.5-14.5); WBC 3.9 10x3/uL (4.8-10.8)
[2018-10-25 08:58] VITALS: BP 115/67
--- NOTE | 2018-10-25 13:11 | NUR ---
OT NOTE: PT CONTINUES TO C/O PAIN; REPORTS THAT THE EDEMA IN VAGINAL AREA IS SEVERELY PAINFUL. AMB TO BATHROOM WITH WALKER AND MIN ASSIST; TRANSFER WITH MIN ASSIST; TOILET HYGIENE WITH SPV. ABLE TO AMB IN ROOM AND INTO HALLWAY WITH MIN ASSIST AND 2 REST BREAKS. ATTEMPTED TO SIT UP IN CHAIR BUT UNABLE TO TOLERATE GREATER THAN 5 MIN DUE TO PAIN; BACK TO BED WITH MIN/MOD ASSIST. NURSING INFORMED ABOUT PAIN. LICHA ALMEIDA,OTR/L
--- NOTE | 2018-10-25 16:58 | NUR ---
OT NOTE: PT COMPLETED BED MOB TASKS WITH MIN A. PT COMPLETED SUPINE TO SIT WITH MIN A. PT STILL IN PAIN TODAY. PT COMPLETED HYGIENE TASK WITH SBA. THANK YOU, JUAN VALDEZ
--- NOTE | 2018-10-25 20:00 | NUR ---
ASSESSMENT PER FLOWSHEET. IV PATENT LEFT ARM OF NS AT 10CC'S/HR SITE CLEAR. O2 ON 2L/M PER NC. CRISTHIAN MAT TO BED SR UP X2 CALL LIGHT WITHIN REACH.
[2018-10-25 20:49] VITALS: BP 107/61
--- NOTE | 2018-10-25 21:30 | NUR ---
MEDS GIVEN PER MAR.
[2018-10-26 00:39] VITALS: BP 91/52
--- NOTE | 2018-10-26 00:47 | NUR ---
EYES CLOSED RESPIRATIONS WITH EASE AND UNLABORED.
[2018-10-26 04:54] VITALS: BP 97/53
--- NOTE | 2018-10-26 07:10 | NUR ---
REC'D IN BED WITH EYES CLOSED EASILY AROUSED WHEN NAME IS CALLED. RESP EVEN AND UNLABORED WITH NO DISTRESS NOTED. HAS BRUISING NOTED TO BUE WITH SWOLENING NOTED. ASSESSMENT COMPLETED. C/L IN REACH AT BEDSIDE.
[2018-10-26 07:47] LABS: ANION GAP 3.4 mmol/L (8-16); BILIRUBIN - TOTAL 1.08 mg/dL (0.2-1.3); CALCIUM 8.1 mg/dL (8.5-10.1); CARBON DIOXIDE 35.5 mmol/L (21.0-32.0); CREATININE - SERUM 0.9 mg/dL (0.6-1.3); MAGNESIUM - SERUM 1.8 mg/dL (1.8-2.4); PHOSPHOROUS 2.8 mg/dL (2.5-4.9); POTASSIUM - SERUM 3.9 mmol/L (3.5-5.1); PROTEIN - SERUM 5.3 g/dL (6.4-8.2)
--- NOTE | 2018-10-26 08:12 | NUR ---
MEDICATED WITH APAP FOR C/O HEADACHE PER ORDERS. C/L IN REACH AT BEDSIDE.
[2018-10-26 08:22] VITALS: BP 127/63
[2018-10-26 08:53] LABS: BASOPHILS 0.2 % (0-2); EOSINOPHILS 1.7 % (0-7); HEMATOCRIT 28.7 % (36.0-48.0); HEMOGLOBIN 8.8 g/dL (12-16); IMMATURE GRANULOCYTES 0.2 % (0-5); MCHC 30.7 g/dL (31.0-37.0); MONOCYTES 10.1 % (2-11); NEUTROPHILS 79.8 % (40-80); PLATELET COUNT 120 10x3/uL (130-400); RBC 3.26 10x6/uL (4.00-5.40); RDW 20.5 % (11.5-14.5); WBC 4.2 10x3/uL (4.8-10.8)
[2018-10-26 13:15] VITALS: BP 106/67
--- NOTE | 2018-10-26 13:27 | NUR ---
I have reviewed this patient and I concur with the Shift Assessment completed by the Licensed Practical Nurse today this shift.
--- NOTE | 2018-10-26 13:35 | NUR ---
OT NOTE: CHECKED ON PT EARLY IN AM.. STATED THAT SHE WAS VERY TIRED AND REQUESTED TO WAIT.. CHECKED ON PT LATER IN AM. STATED THAT HER PAIN HAS NOT IMPROVED. STATES EDEMA IS BETTER BUT PAIN IS 8/10. BED MOB WITH SPV; AMB TO BATHROOM WITH CGA AND WALKER. TOIILET TRANSFER WITH MIN ASSIST AND HYGIENE WITH SET UP. ABLE TO AMB INTO HALLWAY WITH WALKER, GAIT BELT , AND IV. BACK TO BATHROOM WITH MIN ASSIST. AMB TO BED AND BACK TO BED WITH MIN ASSIST. PT WITH C/O PAIN AND WARMNESS TO B UES ON VENTRAL SIDE OF FOREARM. PROVIDED ICE PACKS TO BOTH SIDES. LICHA ALMEIDA, OTR/L
[2018-10-26 16:54] VITALS: BP 104/69
--- NOTE | 2018-10-26 19:00 | NUR ---
REPORT RECEIVED AND CARE OF PT ASSUMED. PT LYING IN LOW HERR'S POSITION WITH EYES CLOSED. IV IN LEFT FA PATENT WITH NS INFUSING AT KVO. O2 IN USE VIA NC AT 2L. WILL MONITOR FOR NEEDS.
--- NOTE | 2018-10-26 20:34 | NUR ---
OT NOTE: PT COMPLETED TOILETING TASKS WITH SPV. PT COMPLETED ADL MOB WITH SBA. PT COMPLETED SITTING BALANCE WITH SBA. THANK YOU, JUAN VALDEZ
--- NOTE | 2018-10-26 21:10 | NUR ---
HS MEDICATIONS GIVEN. WILL CONTINUE TO MONITOR FOR NEEDS.
[2018-10-26 21:48] VITALS: BP 99/56
[2018-10-27] VITALS: BP 89/43
[2018-10-27 05:24] LABS: ALBUMIN 2.2 g/dL (3.4-5.0); BASOPHILS 1.1 % (0-2); BILIRUBIN - TOTAL 0.95 mg/dL (0.2-1.3); CALCIUM 8.3 mg/dL (8.5-10.1); CARBON DIOXIDE 34.9 mmol/L (21.0-32.0); CREATININE - SERUM 0.9 mg/dL (0.6-1.3); EOSINOPHILS 1.7 % (0-7); HEMATOCRIT 26.1 % (36.0-48.0); HEMOGLOBIN 7.9 g/dL (12-16); LYMPHOCYTES 14.9 % (15-50); MCH 26.7 pg (26.0-34.0); MCHC 30.3 g/dL (31.0-37.0); MCV 88.2 fL (80.0-100.0); MEAN PLATELET VOLUME 9.4 fL (7.4-10.4); MONOCYTES 17.1 % (2-11); NEUTROPHILS 65.2 % (40-80); PLATELET COUNT 110 10x3/uL (130-400); POTASSIUM - SERUM 3.9 mmol/L (3.5-5.1); RBC 2.96 10x6/uL (4.00-5.40); RDW 20.2 % (11.5-14.5)
[2018-10-27 05:27] LABS: WBC 1.8 10x3/uL (4.8-10.8)
[2018-10-27 05:48] LABS: LYMPHOCYTES 17 % (15-50); MONOCYTES 14 % (2-11); NEUTROPHILS 69 % (40-80); PLATELET ESTIMATE DECREASED
[2018-10-27 08:25] VITALS: BP 100/64
[2018-10-27 09:47] LABS: HEMATOCRIT 26.3 % (36.0-48.0); MCHC 30.4 g/dL (31.0-37.0); MCV 88.9 fL (80.0-100.0); MEAN PLATELET VOLUME 9.2 fL (7.4-10.4); PLATELET COUNT 103 10x3/uL (130-400); RBC 2.96 10x6/uL (4.00-5.40); RDW 20.4 % (11.5-14.5)
[2018-10-27 10:14] LABS: WBC 1.8 10x3/uL (4.8-10.8)
[2018-10-27 11:05] LABS: BASOPHILS 1 % (0-2); EOSINOPHILS 2 % (0-7); LYMPHOCYTES 24 % (15-50); MONOCYTES 18 % (2-11); NEUTROPHILS 54 % (40-80)
[2018-10-27 11:06] LABS: HYPOCHROMASIA OCC; PLATELET ESTIMATE DECREASED
[2018-10-27 11:59] VITALS: BP 99/69
--- NOTE | 2018-10-27 12:43 | NUR ---
OT NOTE: BED MOB WITH MIN ASSIST; AMB TO BATHROOM WITH MIN ASSIST; TOILET HYGIENE WITH SET UP; AMB INTO HALLWAY X 75+ FT WITH RW, 1 RB, GAIT BELT AND MIN ASSIST. PT FATIGUES QUICKLY. TRANSFERS FROM BED TO CHAIR TO BED WITH MIN ASSIST. CONT TO C/O PAIN OF 8/10. SIMPLE GROOMING WITH SET UP; MOD ASSIST WITH LE DRESSING . LICHA ALMEIDA, OTR/L
--- NOTE | 2018-10-27 12:45 | NUR ---
PATIENT BLOOD INFUSING AT THIS TIME. VS STABLE. IV INTACT. NO COMPLAINTS OR SIGNS OF DISTRESS. CALL LIGHT WITHIN REACH. WILL CONTINUE TO MONITOR.
--- NOTE | 2018-10-27 13:45 | NUR ---
PATIENT IV IN LEFT ARM HURTING. REMOVED IV AND MOVED LINE TO RIGHT ARM IV AT THIS TIME. PATIENT HAS NO COMPLAINTS AT THIS TIME. VS STABLE. CALL LIGHT WITHIN REACH.
--- NOTE | 2018-10-27 14:08 | NUR ---
Nutrition follow-up: Diet: low residue PO intake ~25% of meals Pt now in isolation for neutopenic Labs reviewed Wt: 166# +BM Will continue to provide food choices and honor food preferences within diet restrictions. RDN following.
--- NOTE | 2018-10-27 15:10 | NUR ---
PATIENT BLOOD FINISHED AT THIS TIME. IV INTACT. VS STABLE. NO COMPLAINTS. BSCDS ON. CALL LIGHT WITHIN REACH.
[2018-10-27 16:32] VITALS: BP 93/53
--- NOTE | 2018-10-27 18:00 | NUR ---
PATIENT IV LEAKING. REMOVED WITH CATH TIP INTACT. RESTARTED IN RIGHT WRIST 22G X 1 STICK. TOLERATED WITH SMALL AMOUNT OF PAIN. CALL LIGHT WITHIN REACH.
--- NOTE | 2018-10-27 19:15 | NUR ---
RECEIVED CARE FROM DAY NURSE. LYING IN BED WATCHING TV. NO NEEDS VOICED AT THIS TIME. CALL LIGHT AT SIDE. IV INFUSING TO RIGHT PATENT WRIST.
[2018-10-27 20:43] VITALS: BP 101/67
[2018-10-28 04:48] VITALS: BP 102/44
--- NOTE | 2018-10-28 05:30 | NUR ---
I have reviewed this patient and I concur with the Shift Assessment completed by the Licensed Practical Nurse today this shift.
--- NOTE | 2018-10-28 08:00 | NUR ---
PATIENT UPSET BECAUSE SHE SAID SHE IS HURTING AND NEEDS HER FENTANYL PATCH 100 MG AT LIKE SHE TAKES IT AT HOME BECAUSE SHE THINKS SHE IS HAVING WITHDRAWLS. NOTIFIED CHILO NIEVES. STATED TO SPEAK TO DR. BAZAN. VERBALIZED UNDERSTANDING.
[2018-10-28 08:34] LABS: BASOPHILS 0.1 % (0-2); EOSINOPHILS 0.7 % (0-7); HEMATOCRIT 29.8 % (36.0-48.0); HEMOGLOBIN 9.1 g/dL (12-16); IMMATURE GRANULOCYTES 0.7 % (0-5); LYMPHOCYTES 6.5 % (15-50); MCH 26.6 pg (26.0-34.0); MCHC 30.5 g/dL (31.0-37.0); MCV 87.1 fL (80.0-100.0); MEAN PLATELET VOLUME 9.2 fL (7.4-10.4); MONOCYTES 6.9 % (2-11); NEUTROPHILS 85.1 % (40-80); PLATELET COUNT 99 10x3/uL (130-400); RBC 3.42 10x6/uL (4.00-5.40)
[2018-10-28 08:39] LABS: WBC 6.8 10x3/uL (4.8-10.8)
[2018-10-28 08:55] LABS: ANION GAP 6.3 mmol/L (8-16); BILIRUBIN - TOTAL 1.85 mg/dL (0.2-1.3); CALCIUM 8.3 mg/dL (8.5-10.1); CARBON DIOXIDE 35.3 mmol/L (21.0-32.0); POTASSIUM - SERUM 3.6 mmol/L (3.5-5.1); PROTEIN - SERUM 5.6 g/dL (6.4-8.2)
[2018-10-28 08:58] VITALS: BP 108/66
--- NOTE | 2018-10-28 09:00 | NUR ---
SPOKE WITH DR. BAZAN ABOUT PATIENTS FENTANYL PATCH. STATED THAT SHE DIDNT ORDER HERS SO THE PRIMARY TEAM WOULD HAVE TO ADD IT. ASSESSMENT COMPLETE ON PATIENT. VS STABLE. DID NOT FIND FENTANYL PATCH ON PATIENT. EXPLAINED TO HER THAT THAT IS PROBABLY WHY SHE WAS HURTING SO MUCH BECAUSE SHE DOESNT HAVE HER PATCH ON. SHE STATED MUST HAVE COME OFF LAST NIGHT BC THATS WHEN HER PAIN STARTED. EXPLAINED I WOULD BRING HER PATCH AND MEDS. VERBALIZED UNDERSTANDING. CALL LIGHT WITHIN REACH.
[2018-10-28 09:04] LABS: ALBUMIN 2.8 g/dL (3.4-5.0)
--- NOTE | 2018-10-28 11:30 | NUR ---
IV REMOVED DUE TO PAIN. CATH TIP INTACT. PATIENT STATED SHE WANTS TO WAIT TILL AFTER LUNCH TO GET RESTARTED.
--- NOTE | 2018-10-28 13:40 | NUR ---
RESTARTED PATIENTS IV X 2 STICKS AT THIS TIME AND GAVE MORPHINE 1 MG ORDERED FOR ABDOMINAL PAIN. PATIENT TOLERATED WITH SMALL AMOUNT OF PAIN. LAB IN TO DRAW BLOOD CULTURES. CALL LIGHT WITHIN REACH.
[2018-10-28 14:14] VITALS: BP 99/55
[2018-10-28 17:27] VITALS: BP 122/69
--- NOTE | 2018-10-28 18:29 | NUR ---
PATIENT IN BED WITH EYES CLOSED RESTING QUIETLY. IV INTACT. NO COMPLAINTS. CALL LIGHT WITHIN REACH.
--- NOTE | 2018-10-28 19:15 | NUR ---
RECEIVED CARE FROM DAY NURSE. LYING IN BED. REPORTS NO NEEDS AT THIS TIME. CALL LIGHT AT SIDE. IV INFUSING TO LEFT UPPER ARM.
[2018-10-28 20:18] VITALS: BP 107/64
--- NOTE | 2018-10-29 01:27 | NUR ---
I have reviewed this patient and I concur with the Shift Assessment completed by the Licensed Practical Nurse today this shift.
[2018-10-29 05:34] VITALS: BP 91/52
[2018-10-29 05:50] LABS: BASOPHILS 0.3 % (0-2); EOSINOPHILS 1.2 % (0-7); HEMATOCRIT 26.6 % (36.0-48.0); HEMOGLOBIN 8.2 g/dL (12-16); IMMATURE GRANULOCYTES 0.8 % (0-5); LYMPHOCYTES 8.7 % (15-50); MCH 26.5 pg (26.0-34.0); MCHC 30.8 g/dL (31.0-37.0); MCV 86.1 fL (80.0-100.0); MEAN PLATELET VOLUME 9.3 fL (7.4-10.4); MONOCYTES 15.9 % (2-11); NEUTROPHILS 73.1 % (40-80); PLATELET COUNT 98 10x3/uL (130-400); RBC 3.09 10x6/uL (4.00-5.40); RDW 19.9 % (11.5-14.5); WBC 7.3 10x3/uL (4.8-10.8)
[2018-10-29 06:13] LABS: PLATELET ESTIMATE DECREASED
[2018-10-29 06:14] LABS: ALBUMIN 2.8 g/dL (3.4-5.0); ANION GAP 7.7 mmol/L (8-16); BILIRUBIN - TOTAL 1.37 mg/dL (0.2-1.3); CALCIUM 8.2 mg/dL (8.5-10.1); CARBON DIOXIDE 35.8 mmol/L (21.0-32.0); CREATININE - SERUM 0.8 mg/dL (0.6-1.3); POTASSIUM - SERUM 3.5 mmol/L (3.5-5.1); PROTEIN - SERUM 5.1 g/dL (6.4-8.2)
--- NOTE | 2018-10-29 08:45 | NUR ---
PATIENT IN BED WITH IV INTACT. NO COMPLAIINTS AT THIS TIME. STATES FEELING BETTER THAN YESTERDAY. CALL LIGHT WITHIN REACH.
[2018-10-29 09:15] VITALS: BP 107/65
[2018-10-29 13:10] VITALS: BP 101/59
--- NOTE | 2018-10-29 18:56 | NUR ---
PATIENT IN BED WITH IV INTACT. NO COMPLAINTS OR SIGNS OF DISTRESS. CALL LIGHT WITHIN REACH.
--- NOTE | 2018-10-29 19:15 | NUR ---
RECEIVED CARE FROM DAY NURSE. LYING IN BED ON BACK. REPORTS NO NEEDS AT THIS TIME. CALL LIGHT AT SIDE. IV INFUSING PER ORDER TO PATENT LEFT UPPER ARM.
[2018-10-29 20:00] VITALS: BP 97/59
[2018-10-30] VITALS: BP 92/54
--- NOTE | 2018-10-30 01:28 | NUR ---
I have reviewed this patient and I concur with the Shift Assessment completed by the Licensed Practical Nurse today this shift.
[2018-10-30 04:00] VITALS: BP 96/61
[2018-10-30 06:25] LABS: BASOPHILS 0.2 % (0-2); EOSINOPHILS 1.3 % (0-7); HEMATOCRIT 27.4 % (36.0-48.0); HEMOGLOBIN 8.5 g/dL (12-16); IMMATURE GRANULOCYTES 0.4 % (0-5); LYMPHOCYTES 11.9 % (15-50); MCH 26.9 pg (26.0-34.0); MCV 86.7 fL (80.0-100.0); MEAN PLATELET VOLUME 9.6 fL (7.4-10.4); MONOCYTES 14.3 % (2-11); NEUTROPHILS 71.9 % (40-80); PLATELET COUNT 102 10x3/uL (130-400); RBC 3.16 10x6/uL (4.00-5.40); RDW 20.5 % (11.5-14.5); WBC 8.3 10x3/uL (4.8-10.8)
[2018-10-30 07:03] LABS: ALBUMIN 3.2 g/dL (3.4-5.0); ANION GAP 7.7 mmol/L (8-16); BILIRUBIN - TOTAL 1.33 mg/dL (0.2-1.3); CALCIUM 8.6 mg/dL (8.5-10.1); CARBON DIOXIDE 36.5 mmol/L (21.0-32.0); CREATININE - SERUM 0.9 mg/dL (0.6-1.3); POTASSIUM - SERUM 3.2 mmol/L (3.5-5.1); PROTEIN - SERUM 5.3 g/dL (6.4-8.2)
--- NOTE | 2018-10-30 08:00 | NUR ---
ASSESSMENT PER FLOW SHEET. PT IS WITHOUT DISTRESS.MONITOR FOR NEEDS.CALL LIGHT IN REACH
[2018-10-30 09:11] VITALS: BP 123/73
[2018-10-30 11:52] VITALS: BP 98/61
--- NOTE | 2018-10-30 12:10 | NUR ---
OT NOTE: PT DOING MUCH BETTER. BED MOB INCLUDING SUPINE TO SIT AND SIT TO SUPINE WITHOUT ASSIST TODAY. AMB TO BATHROOM WITH RW AND CGA; TOILET TRANSFERS AND HYGIENE WITH SPV; GROOMING TASKS WHILE STANDING AT SINK APPROX 6 MIN WITH CGA; AMB DOWN HALLWAY WITH 2L 02 X GREATER THAN 120 FT WITH CGA. LICHA ALMEIDA, OTR/L
--- NOTE | 2018-10-30 15:14 | NUR ---
TO CT VIA BED
[2018-10-30 16:04] VITALS: Ht 160 cm; Wt 81.1 kg
--- NOTE | 2018-10-30 17:57 | NUR ---
PT IS WITHOUT CHANGE FROM INITIAL SHIFT ASSESSMENT.CONT PLAN OF CARE
--- NOTE | 2018-10-30 20:00 | NUR ---
ASSESSMENT PER FLOWSHEET. IV PATENT LEFT UPPER ARM OF NS AT 30CC'S/HR. SITE CLEAR. O2 ON AT 2L/M PER NC. NO DISTRESS. SR UP X2 CALL LIGHT WITHIN REACH.
--- NOTE | 2018-10-30 21:15 | NUR ---
RESULTS OF K+ REDRAW WAS. 3.7. NO MEDS NEEDED. PER Stephanie KAT.
[2018-10-30 21:44] VITALS: BP 109/65
--- NOTE | 2018-10-30 21:45 | NUR ---
MEDS GIVEN PER MAR.
--- NOTE | 2018-10-30 22:15 | NUR ---
UP AD MCKINLEY TO BR VOIDS ASSISTED BACK TO BED SR UP X2 CALL LIGHT WITHIN REACH.
[2018-10-31] VITALS (7 sets, daily range): BP systolic 98–123; BP diastolic 56–76
--- NOTE | 2018-10-31 01:00 | NUR ---
MEDS PER MAR.
--- NOTE | 2018-10-31 03:46 | NUR ---
EYES CLOSED RESPIRATIONS WITH EASE AND UNLABORED.
[2018-10-31 04:14] LABS: BASOPHILS 0.1 % (0-2); EOSINOPHILS 1.4 % (0-7); HEMATOCRIT 26.8 % (36.0-48.0); HEMOGLOBIN 8.5 g/dL (12-16); IMMATURE GRANULOCYTES 0.5 % (0-5); LYMPHOCYTES 12.2 % (15-50); MCH 27.3 pg (26.0-34.0); MCHC 31.7 g/dL (31.0-37.0); MCV 86.2 fL (80.0-100.0); MONOCYTES 13.1 % (2-11); NEUTROPHILS 72.7 % (40-80); PLATELET COUNT 102 10x3/uL (130-400); RBC 3.11 10x6/uL (4.00-5.40); RDW 20.9 % (11.5-14.5); WBC 7.9 10x3/uL (4.8-10.8)
[2018-10-31 04:29] LABS: POTASSIUM - SERUM 3.7 mmol/L (3.5-5.1)
[2018-10-31 04:55] LABS: ALBUMIN 3.4 g/dL (3.4-5.0); ANION GAP 6.3 mmol/L (8-16); BILIRUBIN - TOTAL 0.97 mg/dL (0.2-1.3); CALCIUM 8.3 mg/dL (8.5-10.1); CARBON DIOXIDE 36.4 mmol/L (21.0-32.0); CREATININE - SERUM 0.9 mg/dL (0.6-1.3); PROTEIN - SERUM 5.4 g/dL (6.4-8.2)
--- NOTE | 2018-10-31 08:01 | NUR ---
PT IS RESTING IN BED WITH EYES OPEN. RESPIRATIONS ARE EVEN AND UNLABORED. PT REPORTS INTERMITTENT SHARP STABBING PAIN TO LEFT FLANK AND RUQ. PT DENIES MEDICATION NEEDS FOR PAIN CONTROL AT THIS TIME. BS A HYPERACTIVE X 4. PT REPORTS LAST BM 10/30/18. PT DENIES PRESENCE OF N/V. PT DENIES FURTHER NEEDS AT THIS TIME. BED IS IN THE LOWEST POSITION. CALL LIGHT AND BEDSIDE TABLE ARE WITHIN REACH. SIDE RAILS X 2. WILL CONT TO MONITOR.
--- NOTE | 2018-10-31 09:27 | NUR ---
PT COUGHING BUT DENIES ABILITY TO PRODUCE SPUTUM. LUNGS SOUNDS ARE DIMINISHED BILATERALLY THROUGHOUT. PT GIVEN INCENTIVE SPIROMETER AND EDUCATED ON PURPOSE AND USE. PT DEMONSTRATES PROPER USE OF I.S.
--- NOTE | 2018-10-31 11:31 | NUR ---
PT HAS NO SKIN BREAKDOWN. SHE IS OOB WITH PT/WALKING WITH WALKER.
--- NOTE | 2018-10-31 14:03 | NUR ---
NUTRITION F/U CHART REVIEWED, PT VISIT. LOW RESIDUE DIET WITH POOR PO INTAKE PAST FEW MEALS. WILL CONTINUE TO PROVIDE DIET, MONITOR PO INTAKE. RD FOLLOWING
--- NOTE | 2018-10-31 19:40 | NUR ---
RECEIVED PT. IN BED VOICED C/O OF PAIN 09/11 PROVIDED TYLENOL 625MG PER ORDER. RR EVEN AND UNLABORED. NO S/S OF DISTRESS NOTED. NO FURTHER NEEDS EXPRESSED. WILL CPOC.
[2018-11-01] VITALS (10 sets, daily range): BP systolic 93–128; BP diastolic 53–79
[2018-11-01 06:28] LABS: BASOPHILS 0.2 % (0-2); HEMATOCRIT 27.2 % (36.0-48.0); HEMOGLOBIN 8.7 g/dL (12-16); IMMATURE GRANULOCYTES 0.2 % (0-5); LYMPHOCYTES 12.9 % (15-50); MCH 27.4 pg (26.0-34.0); MCV 85.8 fL (80.0-100.0); MEAN PLATELET VOLUME 9.4 fL (7.4-10.4); MONOCYTES 15.1 % (2-11); NEUTROPHILS 69.6 % (40-80); PLATELET COUNT 118 10x3/uL (130-400); RBC 3.17 10x6/uL (4.00-5.40); RDW 20.8 % (11.5-14.5)
[2018-11-01 06:55] LABS: WBC 5.4 10x3/uL (4.8-10.8)
--- NOTE | 2018-11-01 07:00 | NUR ---
PT IS RESTING IN BED WITH EYES CLOSED. RESPIRATIONS ARE EVEN AND UNLABORED. PT IS EASILY AROUSED WITH VERBAL STIMULATION. PT REPORTS INTERMITTENT SHARP STABBING PAIN TO LEFT FLANK. ABDOMEN IS TENDER UPON PALPATION. PT REPORTS MULTIPLE BM THROUGHOUT THE NIGHT AND THIS AM. PT DESCRIBES BM BROWN/GREEN AND WATERY. PT DENIES N/V. PT DENIES NEEDS FOR PAIN MEDICATION AT THIS TIME. BED IS IN THE LOWEST POSITION. CALL LIGHT AND BEDSIDE TABLE ARE WITHIN REACH. SIDE RAILS X 2. PT DENIES FURTHER NEEDS. WILL CONT TO MONITOR.
[2018-11-01 07:04] LABS: ANION GAP 7.8 mmol/L (8-16); CALCIUM 8.7 mg/dL (8.5-10.1); CARBON DIOXIDE 35.6 mmol/L (21.0-32.0); CREATININE - SERUM 0.8 mg/dL (0.6-1.3); POTASSIUM - SERUM 3.4 mmol/L (3.5-5.1)
--- NOTE | 2018-11-01 09:45 | NUR ---
CONSENTS FOR FLEXIBLE SIGMOIDOSCOPY WITH DR MATTHEW COVERED AND SIGNED BY PT. PT DENIES FURTHER QUESTIONS/CONCERNS AT THIS TIME. ALL SIGNED CONSENTS PLACED IN PT CHART.
--- NOTE | 2018-11-01 13:53 | NUR ---
ENEMA ADMINISTERED PER ORDER.
--- NOTE | 2018-11-01 14:55 | NUR ---
PT IS REFUSING IV ATTEMPT FOR 20G AT THIS TIME. WILL NOTIFY APPROPRIATE PERSONELL.
--- NOTE | 2018-11-01 15:32 | NUR ---
PT REPORTS THAT HER BLADDER IS FEELING "FULL". PT STATES THAT SHE HAS VOIDED TODAY BUT DESCRIBES VOIDING "ONLY LITTLE DRIBBLES. I JUST KNOW MY KIDNEY'S ARE SHUTTING DOWN". BLADDER SCAN CONDUCTED. 198ML FLUID SHOWN IN BLADDER. GI HERE FOR PT TO TRANSPORT FOR SIGMOIDOSCOPY.
--- NOTE | 2018-11-01 15:35 | NUR ---
PT TRANSPORTED OFF FLOOR VIA BED FOR GI PROCEDURE.
--- NOTE | 2018-11-01 16:10 | NUR ---
1600 PT WITH TACHYCARDIA WIDE COMPLEX 1605 CODE BLUE CALLED, CARDIOVERTED RHYTHMN. PT NEVER LOST BREATH O2 MASK.
--- NOTE | 2018-11-01 16:12 | NUR ---
1605 ONE CARDIOVERSION AT 200 JOULES
--- NOTE | 2018-11-01 16:13 | NUR ---
1615 IV 20G STARTED RT FA CONNECTED TO LR.
--- NOTE | 2018-11-01 16:45 | NUR ---
REC'D VIA BED POST CODE FROM GI LAB, LAKESHIA, YELLING THAT SHE IS IN SEVERE PAIN, FENTANYL PACH ON LEFT SHOULDER, PAIN IS IN ABDOMEN, MCONNETED TO ICU MONITORS, SHOWING RATE OF 87 WITH AFIB, ASSESSMENT COMPLETED PER FLOWSHHET, ACCLMATED TO ICU, CALL LIGHT IN REACH, WILL CONITNUE WITH POC
--- NOTE | 2018-11-01 17:10 | NUR ---
PC TO DR. HUGHES, NEW STAT ORDERS GIVEN FOR H AND H, MAG, AND CALL TO CARDIOLOGY
--- NOTE | 2018-11-01 17:25 | NUR ---
PC FROM DR ROSARIO, STATUS UPDATED, DECISION TO SEE UF PATIENT GOES OUT OF RHYTHM AGAIN BEFORE ADDING ANY MORE MEDS
[2018-11-01 17:59] LABS: HEMATOCRIT 29.7 % (36.0-48.0); HEMOGLOBIN 9.2 g/dL (12-16)
--- NOTE | 2018-11-01 18:30 | NUR ---
16FR HOOPER PLACED PER ORDER, 500 CC DARK DRAINAGE TO BAG,
--- NOTE | 2018-11-01 18:45 | NUR ---
DR MATTHEW AT BEDSIDE FOR EVAL, NEW ORDERS GIVEN
--- NOTE | 2018-11-01 19:20 | NUR ---
PC TO EDIN AGRAWAL, OTHER RELATIONSHIP, LEFT MESSAGE FOR HER TO CALL CVICU
--- NOTE | 2018-11-01 19:23 | NUR ---
PC BACK FROM TANJA, SHE WILL CONTACT PATIENTS SON, AND GIVE HIM THE INFORMATION AND ROOM NUMBER
--- NOTE | 2018-11-01 21:00 | NUR ---
1900 REPORT RECEIVED CARE ASSUMED ASSESSMENT DONE SEE FLOW SHEET. PT INCONTINENT TO URINE AND STOOL. BLE EXTREME PAIN NOTED UPON TOUCH. NO SCD PUT IN PLACE. 2100 MEDS GIVEN PER MAR. VSS WILL CONTINUE TO MONITOR. FAMILY CALLED SECURITY CODE GIVEN. UPDATE PROVIDED.
--- NOTE | 2018-11-01 23:00 | NUR ---
REASSESSMENT DONE SEE FLOW SHEET VSS NO SIGNS OF ACUTE DISTRESS NOTED WILL CONTINUE TO MONITOR.
[2018-11-02] VITALS (21 sets, daily range): BP systolic 86–117; BP diastolic 45–72
--- NOTE | 2018-11-02 03:00 | NUR ---
0100 WATER PROVIDED PER PT REQUEST. 0300 REASSESSMENT DONE SEE FLOW SHEET VSS.
[2018-11-02 04:52] LABS: BASOPHILS 0.2 % (0-2); EOSINOPHILS 1.7 % (0-7); HEMATOCRIT 26.3 % (36.0-48.0); HEMOGLOBIN 8.2 g/dL (12-16); IMMATURE GRANULOCYTES 0.5 % (0-5); LYMPHOCYTES 12.3 % (15-50); MCH 27.2 pg (26.0-34.0); MCHC 31.2 g/dL (31.0-37.0); MCV 87.1 fL (80.0-100.0); MEAN PLATELET VOLUME 9.1 fL (7.4-10.4); NEUTROPHILS 68.3 % (40-80); PLATELET COUNT 115 10x3/uL (130-400); RBC 3.02 10x6/uL (4.00-5.40); RDW 21.1 % (11.5-14.5); WBC 5.9 10x3/uL (4.8-10.8)
--- NOTE | 2018-11-02 05:25 | NUR ---
PT SOUND ASLEEP IN BED. HR INCREASED TO 130S NO APPARENT REASON WHY. QUICKLY RESOLVED WILL CONTINUE TO MONITOR.
[2018-11-02 05:26] LABS: ANION GAP 8.8 mmol/L (8-16); CALCIUM 8.2 mg/dL (8.5-10.1); CARBON DIOXIDE 34.7 mmol/L (21.0-32.0); CREATININE - SERUM 0.8 mg/dL (0.6-1.3)
[2018-11-02 05:52] LABS: POTASSIUM - SERUM 4.5 mmol/L (3.5-5.1)
--- NOTE | 2018-11-02 07:00 | NUR ---
SLEEPING, AROUSABLE TO VERBAL STIMULI, ORIENTED "I JUST EANT TO SLEEP" ASSESSMENT DEFERRED AT THIS TIME, VSS, HR 84
--- NOTE | 2018-11-02 09:44 | NUR ---
SLEEPING, AROUSABLE TO VERBAL STIMULI, VSS DENYING PAIN AT THIS TIME, ASSESSMENT COMPLETED PER FLOWSHEET, CALL LIGHT IN REACH, NO NEEDS AT THIS TIME
--- NOTE | 2018-11-02 09:45 | NUR ---
MORNING MEDS GIVEN PER JUN FLOWSHEET
--- NOTE | 2018-11-02 10:50 | NUR ---
PER DR MATTHEW, PATIENT MAY TRANSFER OUT OF CVICU
--- NOTE | 2018-11-02 11:09 | NUR ---
DR BRADEN HERE FOR EVAL, PATIENT MAY TRANSFER OUT OF CVICU
--- NOTE | 2018-11-02 11:54 | NUR ---
TO RADIOLOGY FOR ABDOMINAL CT WITH PERSONNEL X2, AAO
--- NOTE | 2018-11-02 12:53 | NUR ---
Nutrition Follow-up: Colonoscopy done yesterday. CT of A/P today. Pt reports tolerating PO intake with some nausea. Diet: Regular Last BM: 11/02 Labs noted: Ca 8.2, Mg 1.6 Meds noted: Lasix, Micro-K, MagOx May consider cardiac diet. +Ensure with meals per pt request. Happy food preferences. RD following.
--- NOTE | 2018-11-02 14:30 | NUR ---
REPORT CALLED TO LICHA ON MED 2
--- NOTE | 2018-11-02 15:30 | NUR ---
RECIEVED PT TO ROOM 2127 VIA BED, TRANSFERED PT TO NEW BED X3 ASSIST. CLEANED PT UP FROM INCONT EPISODE AND REPOSITIONED HER IN THE BED. ORIENTED PT TO ROOM AND CALL LIGHT. HEART MONITOR PLACED ON PT. PT DENIES ANY NEEDS AT THIS TIME. CALL LIGHT IN REACH, NAD NOTED, WILL CONTINUE TO MONITOR.
--- NOTE | 2018-11-02 17:50 | NUR ---
CALLED PHARMACY AND SPOKE WITH JACY, INFORMED HER THAT I NEED FENTANYL PATCH FOR PT.
--- NOTE | 2018-11-02 19:29 | NUR ---
REPORT RECIEVED AND ROUNDING COMPLETE. WHEN ROUNDING TRACI RN WAS IN ROOM. ASSISTED RN IN CLEANING UP PATIENT INCONT. EPISODE. TRACI RN PUT ON PATIENT PAIN PATCH. PATIENT WAS REPOSITIONED IN BED, PATIENT SHOWING NO S/SX OF DISTRESS AT THIS TIME. PATIENT HAS A LEFT AC WITH NORMAL SALINE RUNNING. PATIENT IS WEARING NASAL CANNULA AND RECIEVEING 02 AT 2L. PATIENT STATES NO NEEDS AT THIS TIME CALL LLIGHT WITHIN REACH AND BED IN LOWEST LOCKED POSITION.
[2018-11-03] VITALS: BP 104/70
--- NOTE | 2018-11-03 01:21 | NUR ---
PATIENT ASKED FOR A SNACK OF SALTINE CRACKERS AND A COKE. RETRIVED FOR PATIENT NO OTHER NEEDS AT THIS TIME. CALL LIGHT WITHIN REACH AND BED INLOWEST POSITION
[2018-11-03 04:00] VITALS: BP 110/68
[2018-11-03 06:32] LABS: BASOPHILS 0.1 % (0-2); EOSINOPHILS 1.9 % (0-7); HEMATOCRIT 24.9 % (36.0-48.0); HEMOGLOBIN 7.9 g/dL (12-16); LYMPHOCYTES 12.1 % (15-50); MCHC 31.7 g/dL (31.0-37.0); MONOCYTES 17.3 % (2-11); NEUTROPHILS 67.6 % (40-80); PLATELET COUNT 128 10x3/uL (130-400); RBC 2.93 10x6/uL (4.00-5.40); RDW 21.4 % (11.5-14.5)
[2018-11-03 06:52] LABS: ANION GAP 7.8 mmol/L (8-16); CALCIUM 8.6 mg/dL (8.5-10.1); CARBON DIOXIDE 32.5 mmol/L (21.0-32.0); CREATININE - SERUM 0.8 mg/dL (0.6-1.3)
[2018-11-03 06:53] LABS: POTASSIUM - SERUM 4.3 mmol/L (3.5-5.1)
[2018-11-03 09:05] LABS: APTT 37.2 SECONDS (22.8-39.4); INR 1.36 (0.85-1.17); PROTIME 16.2 SECONDS (11.6-15.0)
[2018-11-03 09:50] VITALS: BP 110/65
[2018-11-03 12:30] VITALS: BP 94/50
--- NOTE | 2018-11-03 12:54 | NUR ---
PATIENT MUST BE NPO AFTER MIDNIGHT ON TUESDAY NIGHT FOR HER BONE BIOPSY ON Tuesday.
--- NOTE | 2018-11-03 13:13 | NUR ---
PATIENT IS GETTING BONE SCAN.
[2018-11-03 16:08] LABS: AEROBE ID Final report (())
[2018-11-03 16:08] LABS: AEROBE ID Final report (())
[2018-11-03 16:34] VITALS: BP 105/56
--- NOTE | 2018-11-03 16:58 | NUR ---
STARTING FIRST UNIT OF BLOOD. GAVE TYLENOL AND BENADRYL ORDERED.
--- NOTE | 2018-11-03 18:59 | NUR ---
JOHNNA NIEVES STATES THAT IT WOULD NOT BE APPROPRIATE TO REMOVE THE HOOPER CAHTETER AT THIS TIME BECAUSE PATIENT IS SO WEAK AND RECIEVING BLOOD PRODUCTS.
--- NOTE | 2018-11-03 19:35 | NUR ---
REPORT RECIEVED AND ROUNDING COMPLETE. PATIENT LAYING IN BED IN SUPINE POSITION, HOB ELEVATED 40%, PATIENT IS ALERT AND ORINETED. PATIENT IS RECIEVING FIRST UNIT OF BLOOD INTO HER LEFT AC PIV, PIV IS SHOWING NO S/SX OF INFILTRATION OR INFECTION. PATIENT HAS NASAL CANNULA AND RECIEVEING O2 AT 4.5L PATIENT STATES SHE HAS NO NEEDS AT THIS TIME. CALL LIGHT WITHIN REACH AND BED IN LOWEST POSTION.
[2018-11-03 20:00] VITALS: BP 99/62
--- NOTE | 2018-11-03 21:14 | NUR ---
PATIENT IS TO GET 2ND UNIT OF BLOOD WITH LASIX INBETWEEN HOWEVER PATIENR'S B/P IS 98/62. TALKED WITH MY CHARGE NURSE TAMARA AMBROSIO AND WE AGRRED TO HOLD AT THIS TIME ECAUSE OF BLOOD PRESSURE.
[2018-11-04] VITALS: BP 92/54
--- NOTE | 2018-11-04 00:45 | NUR ---
PATIENT FINISHED BLOOD PRODUCTS.
--- NOTE | 2018-11-04 03:57 | NUR ---
I have reviewed this patient and I concur with the Shift Assessment completed by the Licensed Practical Nurse today this shift.
[2018-11-04 06:42] LABS: BASOPHILS 0.2 % (0-2); EOSINOPHILS 1.7 % (0-7); IMMATURE GRANULOCYTES 0.8 % (0-5); LYMPHOCYTES 7.7 % (15-50); MCH 27.9 pg (26.0-34.0); MCHC 32.6 g/dL (31.0-37.0); MCV 85.5 fL (80.0-100.0); MEAN PLATELET VOLUME 9.7 fL (7.4-10.4); NEUTROPHILS 78.6 % (40-80); PLATELET COUNT 106 10x3/uL (130-400); WBC 6.4 10x3/uL (4.8-10.8)
[2018-11-04 06:44] LABS: HEMATOCRIT 30.7 % (36.0-48.0); RBC 3.59 10x6/uL (4.00-5.40)
[2018-11-04 07:12] LABS: ANION GAP 11.8 mmol/L (8-16); CALCIUM 8.6 mg/dL (8.5-10.1); CREATININE - SERUM 0.9 mg/dL (0.6-1.3); POTASSIUM - SERUM 3.8 mmol/L (3.5-5.1)
--- NOTE | 2018-11-04 08:46 | NUR ---
RECEIVED REPORT. PATIENT IS VERY LETHARGIC, AND WHEN SHE SITS UP IN BED SHE CRIES OUT IN DISCOMFORT AND STATES THAT HER ABDOMEN HURTS. SHE HAS EDEMA IN THE LOWER EXTREMITIES. SHE RECIEVED 2 UNITS OF BLOOD YESTERDAY. SHE LOOKS PALE, AND VERY UNCOMFORTABLE. SHE IS SITTING UPIN BED TO EAT BREAKFAST AT THIS TIME. SHE HAS A BONE BIOPSY SCHEDULED ON TUESDAY. SHE WILL BE NPO STARTING TUESDAY NIGHT. CONSENTS STILL NEED OBTAINED.
[2018-11-04 09:02] VITALS: BP 101/58
[2018-11-04 11:54] VITALS: BP 104/52
[2018-11-04 16:31] VITALS: BP 121/61
--- NOTE | 2018-11-04 17:26 | NUR ---
PATIENT IS SITTING UP IN BED EATTING DINNER. SHE DENIES ANY NEEDS AT THIS TIME.
[2018-11-04 20:00] VITALS: BP 121/67
--- NOTE | 2018-11-04 20:13 | NUR ---
EVENING ROUNDS COMPLETED. REPORT RECEIVED. PT SITTING UP IN BED WITH EYES OPEN, RR EVEN AND UNLABORED. BED IN LOW POSITION. 76 SINUS ON TELEMETRY. OXYGEN AT 4.5 LITERS BY NASAL CANNULA. INTRODUCED SELF TO PT. PT DENIES FURTHER NEEDS AT THIS TIME. CALL LIGHT IN REACH. WILL CTM.
[2018-11-05] VITALS: BP 97/57
--- NOTE | 2018-11-05 01:40 | NUR ---
PT RESTING IN BED WITH EYES OPEN, RR EVEN AND UNLABORED. NO S/S OF DISTRESS NOTED. 68 SINUS ON TELEMETRY. BED IN LOW POSITION. CALL LIGHT IN REACH. WILL CTM.
--- NOTE | 2018-11-05 03:05 | NUR ---
I have reviewed this patient and I concur with the Shift Assessment completed by the Licensed Practical Nurse today this shift.
[2018-11-05 04:00] VITALS: BP 115/70
[2018-11-05 04:53] LABS: BASOPHILS 0.1 % (0-2); EOSINOPHILS 1.9 % (0-7); HEMATOCRIT 30.4 % (36.0-48.0); HEMOGLOBIN 9.8 g/dL (12-16); IMMATURE GRANULOCYTES 0.8 % (0-5); LYMPHOCYTES 9.7 % (15-50); MCH 27.8 pg (26.0-34.0); MCHC 32.2 g/dL (31.0-37.0); MCV 86.1 fL (80.0-100.0); MEAN PLATELET VOLUME 9.5 fL (7.4-10.4); MONOCYTES 10.2 % (2-11); NEUTROPHILS 77.3 % (40-80); PLATELET COUNT 108 10x3/uL (130-400); RBC 3.53 10x6/uL (4.00-5.40); WBC 7.4 10x3/uL (4.8-10.8)
[2018-11-05 05:05] LABS: ANION GAP 7.8 mmol/L (8-16); CALCIUM 8.9 mg/dL (8.5-10.1); CARBON DIOXIDE 34.5 mmol/L (21.0-32.0); CREATININE - SERUM 0.9 mg/dL (0.6-1.3); POTASSIUM - SERUM 4.3 mmol/L (3.5-5.1)
--- NOTE | 2018-11-05 07:10 | NUR ---
REPORT RECEIVED FROM CONSUMER EXPERIENCE CONSULTANT AND PATIENT CARE ASSUMED. PATIENT AWAKE,ALERT AND ORIENTED X 4. PATIENT IS STABLE AND VSS. WILL CONTINUE WITH PLAN OF CARE. SR UP X 2 BED IN LOW POSITION AND CALL LIGHT IN REACH.
[2018-11-05 09:21] VITALS: BP 104/60
--- NOTE | 2018-11-05 10:27 | NUR ---
PATIENT RESTING QUIETLY IN BED WITH EYES CLOSED AND BREATHING EVENLY. ASSESSMENT COMPLETED. WILL CONTINUE TO MONITOR. SR UP X 2 BED IN LOW POSITION AND CALL LIGHT IN REACH.
[2018-11-05 13:24] VITALS: BP 121/61
[2018-11-05 15:56] VITALS: BP 99/60
--- NOTE | 2018-11-05 17:37 | NUR ---
PATIENT SITTING UP IN BED EATIHNG SUPPER. PATIENT STATES DOES NOT WANT HAMBURGER. PROVIDED PATIENT WITH JELLO, APPLE SAUCE AND ENSURE. PATIENT DENIES ANY OTHER NEEDS OR PAIN. WILL CONTINUE TO MONITOR. SR UP X 2 BED IN LOW POSITION AND CALL LIGHT IN REACH.
--- NOTE | 2018-11-05 19:30 | NUR ---
RECIEVED LAYING IN BED WITH HOB ELEVATED. ALERT AND ORIENTED X4. O2@ 4.5 LITERS PER N/C. IV TO LEFT AC WITH NS AT 50CCHR. F/C INTACT WITH CLEAR STRAW COLOR URINE DRAINING TO BEDSIDE DRAINAGE BAG. PITTING EDEMA TO LOWER EXTREMITIES. TELEMETRY IN PLACE. DENIES ANY NEEDS AT THIS TIME.
[2018-11-05 20:20] VITALS: BP 118/61
[2018-11-06] VITALS: BP 120/62
[2018-11-06 04:00] VITALS: BP 106/72
[2018-11-06 05:04] LABS: BASOPHILS 0.1 % (0-2); EOSINOPHILS 2.2 % (0-7); HEMOGLOBIN 9.5 g/dL (12-16); IMMATURE GRANULOCYTES 0.9 % (0-5); MCH 28.3 pg (26.0-34.0); MCHC 32.8 g/dL (31.0-37.0); MCV 86.3 fL (80.0-100.0); MEAN PLATELET VOLUME 9.9 fL (7.4-10.4); MONOCYTES 8.8 % (2-11); PLATELET COUNT 117 10x3/uL (130-400); RBC 3.36 10x6/uL (4.00-5.40); RDW 20.2 % (11.5-14.5); WBC 6.7 10x3/uL (4.8-10.8)
[2018-11-06 05:10] LABS: ANION GAP 10.8 mmol/L (8-16); CALCIUM 8.7 mg/dL (8.5-10.1); CARBON DIOXIDE 30.6 mmol/L (21.0-32.0); CREATININE - SERUM 0.8 mg/dL (0.6-1.3); POTASSIUM - SERUM 4.4 mmol/L (3.5-5.1)
[2018-11-06 05:14] LABS: APTT 37.4 SECONDS (22.8-39.4); INR 1.66 (0.85-1.17)
--- NOTE | 2018-11-06 07:10 | NUR ---
REPORT RECEIVED FROM NATURAL RESOURCES INSTRUCTOR AND PATIENT CARE ASSUMED. PATIENT LAYING IN BED WITH EYES CLOSED AND BREATHING EVENLY. VSS. PATIENT IS NPO AWAITING BONE MARROW BX. WILL CONTINUE WITH PLAN OF CARE. SR UP X 2 BED IN LOW POSITION AND CALL LIGHT IN REACH.
--- NOTE | 2018-11-06 08:10 | NUR ---
PATIENT IS STABLE AND VSS. PATIENT DENIES ANY NEEDS OR PAIN. PATIENT TO IR LAB VIA IR TEAM AND HOSPITAL BED.
--- NOTE | 2018-11-06 09:10 | NUR ---
PATIENT RETURNED FROM IR VIA HOSPITAL BED AND IR TEAM. PATIENT IS SLEEPY BUT AROUSES EASILY TO VOICE. DRESSING TO SACRUM C/D/I FROM JONH [place]. PATIENT IS STABLE AND VSS. PATIENT DENIES ANY NEEDS OR PAIN. WILL CONTINUE TO MONITOR AND FREQUENT VS. SR UP X 2 BED IN LOW POSITION AND CALL LIGHT IN REACH.
--- NOTE | 2018-11-06 12:15 | NUR ---
PATIENT EATING LUNCH. PATIENT DENIES ANY NEEDS OR PAIN. PATIENT IS STABLE AND VSS. DRSG TO SACRUM C/D/I. WILL CONTINUE TO MONITOR. SR UP X 2 BED IN LOW POSITION AND CALL LIGHT IN REACH.
[2018-11-06 12:32] VITALS: BP 90/45
[2018-11-06 14:09] LABS: OVA + PARASITE EXAM Final report (())
--- NOTE | 2018-11-06 14:51 | NUR ---
Nutrition Follow-up: NPO for bone marrow biopsy at time of visit. Per chart review, tolerating PO intake with 1 BM today. Diet: Regular PO intake: 17% (8/4) Labs reviewed Meds noted: Lasix, Micro-K Continue current diet as tolerated. Offer nutrition supplements. [place] food preferences. RD following.
[2018-11-06 16:26] VITALS: BP 110/60
--- NOTE | 2018-11-06 16:42 | NUR ---
PATIENT HAD LIQUID BROWN STOOL. PATIENT CLEANED AND UNDERWENT FULL LINEN CHANGE. PATIENT IS STABLE AND VSS. DRSG TO SACRUM IS C/D/I. PATIENT DENIES ANY NEEDS OR PAIN. WILL CONTINUE TO MONITOR. SR UP X 2 BED IN LOW POSITION AND CALL LIGHT IN REACH.
--- NOTE | 2018-11-06 19:00 | NUR ---
PATIENT LAYING IN BED, EYES CLOSED, CHEST RISING AND FALLING. NO DISTRESS NOTED.
[2018-11-06 20:00] VITALS: BP 117/63
[2018-11-07] VITALS: BP 99/51
[2018-11-07 04:00] VITALS: BP 101/50
--- NOTE | 2018-11-07 07:00 | NUR ---
RECEIVED REPORT. ASSUMED CARE OF PATIENT. CALL LIGHT WITHIN REACH. LYING IN BED WITH EYES OPEN. RESP EVEN AND UNLABORED. PATIENT IS KAIBAB. DENIES NEEDS. NO DISTRESS.
[2018-11-07 08:33] VITALS: BP 97/43
--- NOTE | 2018-11-07 11:09 | NUR ---
MEDICATED FOR PAIN AT THIS TIME. NO DISTRESS.
[2018-11-07 11:49] VITALS: BP 87/37
[2018-11-07 12:14] LABS: BASOPHILS 0.2 % (0-2); HEMATOCRIT 28.3 % (36.0-48.0); HEMOGLOBIN 9.2 g/dL (12-16); IMMATURE GRANULOCYTES 0.4 % (0-5); LYMPHOCYTES 6.9 % (15-50); MCH 28.3 pg (26.0-34.0); MCHC 32.5 g/dL (31.0-37.0); MCV 87.1 fL (80.0-100.0); MEAN PLATELET VOLUME 9.6 fL (7.4-10.4); MONOCYTES 8.3 % (2-11); NEUTROPHILS 82.2 % (40-80); PLATELET COUNT 118 10x3/uL (130-400); RBC 3.25 10x6/uL (4.00-5.40); RDW 20.9 % (11.5-14.5); WBC 5.4 10x3/uL (4.8-10.8)
[2018-11-07 12:18] LABS: ALBUMIN 3.8 g/dL (3.4-5.0); ANION GAP 5.5 mmol/L (8-16); BILIRUBIN - TOTAL 1.61 mg/dL (0.2-1.3); CALCIUM 8.4 mg/dL (8.5-10.1); CARBON DIOXIDE 36.4 mmol/L (21.0-32.0); CREATININE - SERUM 0.9 mg/dL (0.6-1.3); POTASSIUM - SERUM 3.9 mmol/L (3.5-5.1); PROTEIN - SERUM 5.5 g/dL (6.4-8.2)
[2018-11-07 14:09] LABS: UPE RAND - ALPHA 1 GLOBULIN 10.4 % (()); UPE RAND - ALPHA 2 GLOBULIN 22.5 % (()); UPE RAND - BETA GLOBULIN 7.7 % (()); UPE RAND - GAMMA GLOBULIN 22.4 % (())
[2018-11-07 14:09] LABS: SPE - A/G RATIO 2.2 (0.7-1.7); SPE - ALBUMIN 3.7 g/dL (2.9-4.4); SPE - ALPHA-1 GLOBULIN 0.3 g/dL (0.0-0.4); SPE - ALPHA-2 GLOBULIN 0.3 g/dL (0.4-1.0); SPE - BETA GLOBULIN 0.5 g/dL (0.7-1.3); SPE - GAMMA GLOBULIN 0.6 g/dL (0.4-1.8); SPE - M-SPIKE Not Observed g/dL (Not Observed); SPE - TOTAL PROTEIN 5.4 g/dL (6.0-8.5)
[2018-11-07 15:26] VITALS: BP 89/46
--- NOTE | 2018-11-07 16:17 | NUR ---
LYING IN BED. NO DISTRESS. CALL LIGHT WITHIN REACH.
--- NOTE | 2018-11-07 19:38 | NUR ---
ASSESSMENT COMPLETE, PT A&O, H.O.H. RESPERATIONS EVEN ON 02 AT 4.5 LITERS VIA NC. IV TO RIGHT ARM SL, AND IV TO LEFT AC WITH NS INFUSING AT 50 CC/HR. HOOPER CATH DRAINING TO GRAVITY. BED LOW, CL IN REACH.
[2018-11-07 20:00] VITALS: BP 119/53
[2018-11-08] VITALS: BP 105/50
--- NOTE | 2018-11-08 04:58 | NUR ---
PT REFUSED AM LAB DRAW.
[2018-11-08 06:49] VITALS: BP 91/47
[2018-11-08 07:02] LABS: BASOPHILS 0.2 % (0-2); EOSINOPHILS 1.4 % (0-7); HEMATOCRIT 28.2 % (36.0-48.0); HEMOGLOBIN 9.2 g/dL (12-16); IMMATURE GRANULOCYTES 0.5 % (0-5); LYMPHOCYTES 7.7 % (15-50); MCH 28.4 pg (26.0-34.0); MCHC 32.6 g/dL (31.0-37.0); MONOCYTES 7.4 % (2-11); NEUTROPHILS 82.8 % (40-80); PLATELET COUNT 131 10x3/uL (130-400); RBC 3.24 10x6/uL (4.00-5.40); RDW 21.4 % (11.5-14.5); WBC 6.3 10x3/uL (4.8-10.8)
[2018-11-08 07:03] LABS: ANION GAP 8.8 mmol/L (8-16); CALCIUM 9.2 mg/dL (8.5-10.1); CARBON DIOXIDE 33.4 mmol/L (21.0-32.0); CREATININE - SERUM 0.9 mg/dL (0.6-1.3); MAGNESIUM - SERUM 1.8 mg/dL (1.8-2.4); PHOSPHOROUS 3.3 mg/dL (2.5-4.9); POTASSIUM - SERUM 4.2 mmol/L (3.5-5.1)
--- NOTE | 2018-11-08 07:50 | NUR ---
RECIEVED REPORT. PATIENT IS RESTING QUIETLY IN BED WITH EYES CLOSED. HER COLOR IS DARIUS YELLOW. IV INFUSING IN LEFT AC ORDERED. EDEMA IN LOWER EXTREMITIES.
--- NOTE | 2018-11-08 08:20 | NUR ---
PT HAS MOISTURE ASSOCIATED SKIN IRRITATION PERINEAL AREA. SHE STATES SHE IS HAVING FREQUENT DIARRHEA. SHE HAS A F/C. RECOMMENDED CALMOSEPTINE CREAM TO PROTECT SKIN FROM MOISTURE. SHE HAS A SMALL (0.1CM) SPOT ON RIGHT SIDE OF SACRUM FROM BIOPSY 2 DAYS AGO. THERE IS NO REDNESS, BRUISING, EDEMA OR DRAINAGE. BILATERAL LOWER LEGS ARE DISCOLORED, HAIRLESS AND SHINY. EDEMA NOTED. WOUND CARE WILL CONTINUE MONITORING.
[2018-11-08 08:32] VITALS: BP 115/64
[2018-11-08 12:43] VITALS: BP 110/60
--- NOTE | 2018-11-08 13:11 | NUR ---
Nutrition Follow-up: Per chart review, pt with diarrhea and moisture associated skin irritation of perineal area. Diet: Regular Last BM: 11/08 Wt: 178# Labs reviewed Meds noted: Calmoseptine, Lasix, Albumin, Micro-K, NS 0.9% @ 50 mL/hr. Continue current diet as tolerated. [place] food preferences. RD following.
[2018-11-08 16:14] VITALS: BP 99/54
--- NOTE | 2018-11-08 19:00 | NUR ---
PATIENT LAYING IN BED. PATIENT HAS NO COMPLAINTS AT THIS TIME. NO DISTRESS NOTED.
--- NOTE | 2018-11-08 19:00 | NUR ---
PATIENT'S HOOPER EMPTIED. RECIEVED 1400ML OF PANTERA URINE.
[2018-11-08 20:00] VITALS: BP 101/53
[2018-11-09] VITALS: BP 104/62
--- NOTE | 2018-11-09 01:30 | NUR ---
PATIENT LAYING IN BED, EYES CLOSED, CHEST RISING AND FALLING. NO DISTRESS NOTED.
[2018-11-09 04:00] VITALS: BP 106/58
[2018-11-09 05:24] LABS: BASOPHILS 0.2 % (0-2); EOSINOPHILS 1.9 % (0-7); HEMATOCRIT 26.4 % (36.0-48.0); HEMOGLOBIN 8.7 g/dL (12-16); IMMATURE GRANULOCYTES 0.4 % (0-5); LYMPHOCYTES 10.5 % (15-50); MCH 28.3 pg (26.0-34.0); MEAN PLATELET VOLUME 9.6 fL (7.4-10.4); MONOCYTES 8.7 % (2-11); NEUTROPHILS 78.3 % (40-80); PLATELET COUNT 126 10x3/uL (130-400); RBC 3.07 10x6/uL (4.00-5.40); RDW 21.6 % (11.5-14.5); WBC 5.2 10x3/uL (4.8-10.8)
[2018-11-09 05:53] LABS: CALCIUM 8.6 mg/dL (8.5-10.1); CARBON DIOXIDE 34.2 mmol/L (21.0-32.0); CREATININE - SERUM 0.9 mg/dL (0.6-1.3); MAGNESIUM - SERUM 1.5 mg/dL (1.8-2.4); PHOSPHOROUS 3.3 mg/dL (2.5-4.9); POTASSIUM - SERUM 4.2 mmol/L (3.5-5.1)
[2018-11-09 08:21] VITALS: BP 110/65
[2018-11-09 11:55] VITALS: BP 108/63
--- NOTE | 2018-11-09 12:01 | NUR ---
I have reviewed this patient and I concur with the Shift Assessment completed by the Licensed Practical Nurse today this shift.
--- NOTE | 2018-11-09 13:59 | MORECARE ---
CASE MANAGEMENT DISCHARGE SUMMARY PATIENT: NOEMI ROBISON UNIT: [id number] ADM DATE: 10/20/18 AGE: 73 : 46 SEX: F ROOM/BED: D.9508 AUTHOR: DANIELLE,DOC PHYSICIAN: REFERRING PHYSICIAN: BRIGETTE BRADEN MD DATE OF SERVICE: 11/09/18 Discharge Plan Patient Name: NOEMI ROBISON Facility: [facility]:[place] : 1945 Planned Disposition: Detention Facility Anticipated Discharge Date: Discharge Date: Expected LOS: Initial Reviewer: [email or web address] Initial Review Date: 10/24/2018 Generated: 11/09/18 2:59 pm DCP- Discharge Planning Updated by [id number]: Naomie Reed on 10/24/18 11:[address] Patient Name: NOEMI ROBISON Admission Status: ER Accout number: [id number] Admission Date: 10-20-2018 : 1945 Admission Diagnosis:ACUTE KIDNEY FAILURE, UNSPECIFIED Attending: BRIGETTE BRADEN Current LOS: 4 Anticipated DC Date: Planned Disposition: Home Primary Insurance: [facility] MEDICARE SOLUTIONS Discharge Planning Comments: CM met with patient to complete initial dc planning assessment. CM educated patient on the CM role and verbal consent given by patient to complete assessment. CM verified patient's address, phone number, and emergency contact phone numbers. Patient lives at home with family and reports She is independent in hER care. At discharge patient plans to return home and feels this is a safe discharge. CM discussed availability of home health, rehab services, and medical equipment. Patient denied known discharge needs at this time.. . CM will continue to follow and will assist as needed with dc plans/needs. Automated Cutting Machine Operator: Naomie Reed DCPIA - Discharge Planning Initial Assessment Updated by [email or web address]: Naomie Reed on 10/24/18 12:40 pm * Is the patient Alert and Oriented? Yes * How many steps to enter\exit or inside your home? * PCP TANIYA * [facility] * Preadmission Environment Home with Family * ADLs Independent * Equipment Oxygen * Verbal permission to speak to the caregivers and representatives has been obtained from the patient. N/A * Additional services required to return to the preadmission environment? No * Can the patient safely return to the preadmission environment? Yes * Has this patient been hospitalized within the prior 30 days at any hospital? No Last DP export: 10/24/18 11:42 a Patient Name: NEOMI ROBISON Page [phone] at 1359 All edits/amendments must be made on the electronic document DICTATION DATE: 11/09/18 135 INSIDE PHONE SALES: KALIE 11/09/18 1358 RPT#: [id number] DC DATE: STATUS: ADM IN [facility] [address] [place] [address] END OF REPORT
--- NOTE | 2018-11-09 14:33 | MORECARE ---
CASE MANAGEMENT DISCHARGE SUMMARY PATIENT: NOEMI ROBISON UNIT: [id number] ADM DATE: 10/20/18 AGE: 73 : 46 SEX: F ROOM/BED: D.8377 AUTHOR: DANIELLE,DOC PHYSICIAN: REFERRING PHYSICIAN: BRIGETTE BRADEN MD DATE OF SERVICE: 11/09/18 Discharge Plan Patient Name: NOEMI ROBISON Facility: [facility]:[place] : 1945 Planned Disposition: Fpc Facility Anticipated Discharge Date: Discharge Date: Expected LOS: Initial Reviewer: [id number] Initial Review Date: 10/24/2018 Generated: 11/09/18 3:32 pm DCP- Discharge Planning Updated by [email or web address]: Naomie Reed on 10/24/18 11:[address] Patient Name: NOEMI ROBISON Admission Status: ER Accout number: [id number] Admission Date: 10-20-2018 : 1945 Admission Diagnosis:ACUTE KIDNEY FAILURE, UNSPECIFIED Attending: BRIGETTE BRADEN Current LOS: 4 Anticipated DC Date: Planned Disposition: Home Primary Insurance: [facility] MEDICARE SOLUTIONS Discharge Planning Comments: CM met with patient to complete initial dc planning assessment. CM educated patient on the CM role and verbal consent given by patient to complete assessment. CM verified patient's address, phone number, and emergency contact phone numbers. Patient lives at home with family and reports She is independent in hER care. At discharge patient plans to return home and feels this is a safe discharge. CM discussed availability of home health, rehab services, and medical equipment. Patient denied known discharge needs at this time.. . CM will continue to follow and will assist as needed with dc plans/needs. Custom Bow Maker: Naomie Reed DCPIA - Discharge Planning Initial Assessment Updated by [email or web address]: Naomie Reed on 10/24/18 12:40 pm * Is the patient Alert and Oriented? Yes * How many steps to enter\exit or inside your home? * PCP TANIYA * [facility] * Preadmission Environment Home with Family * ADLs Independent * Equipment Oxygen * Verbal permission to speak to the caregivers and representatives has been obtained from the patient. N/A * Additional services required to return to the preadmission environment? No * Can the patient safely return to the preadmission environment? Yes * Has this patient been hospitalized within the prior 30 days at any hospital? No External Providers External Provider: [facility] Next Contact Date: 11/09/2018 Service Request Date: Service Type: Resolution: Reviewer: Comments: Last DP export: 11/09/18 12:59 pm Patient Name: NOEMI ROBISON Page [phone] at 1433 All edits/amendments must be made on the electronic document DICTATION DATE: 11/09/18 143 UKE OPERATOR: KALIE 11/09/18 1432 RPT#: [id number] DC DATE: STATUS: ADM IN [facility] [address] [place] [address] END OF REPORT
--- NOTE | 2018-11-09 14:46 | MORECARE ---
CASE MANAGEMENT DISCHARGE SUMMARY PATIENT: NOEMI ROBISON UNIT: [id number] ADM DATE: 10/20/18 AGE: 73 : 46 SEX: F ROOM/BED: D.6049 AUTHOR: DANIELLE,DOC PHYSICIAN: REFERRING PHYSICIAN: BRIGETTE BRADEN MD DATE OF SERVICE: 11/09/18 Discharge Plan Patient Name: NOEMI ROBISON Facility: [facility]:[place] : 1945 Planned Disposition: Custodial Facility Anticipated Discharge Date: Discharge Date: Expected LOS: Initial Reviewer: [email or web address] Initial Review Date: 10/24/2018 Generated: 11/09/18 3:46 pm Comments DCP- Discharge Planning Updated by [email or web address]: Ranjeet Light on 11/09/18 1:[address] Patient Name: NOEMI ROBISON Encounter No: [id number] : 1945 Primary Insurance: [facility] MEDICARE SOLUTIONS Anticipated DC Date: Planned Disposition: Custodial Facility External Planned Provider: [facility], MEDICARE REHAB BED DCP follow-up note: CM SPOKE TO PT IN ROOM REGARDING DISCHARGE PLANNING AND NEEDS. PT REPORTS SHE FEELS VERY WEAK AND MAY NEED REHAB. CM DISCUSSED REHAB OPTIONS, PROVIDERS AND LOCATIONS. PT WANTS CM TO ATTEMPT REHAB FOR HER AT ANY ASSISTED FACILITY IN [place]. LISTING PROVIDED. PT SIGNED CONSENT FOR ANY ASSISTED REHAB IN [place]. IMPORTANT MESSAGE FROM MEDICARE PROVIDED AND EXPLAINED. CM NOTIFIED SHAHBAZ OF [facility], , OF REHAB REFERRAL. CM FAXED REFERRAL TO [facility] AT [phone]. NEW OCCUPATIONAL THERAPY EVALUATION ORDERED PT HAS MANAGED MEDICARE AND REQUIRES EVALUATION FOR REHAB PLACEMENT. CM WAITING OT EVALUATION AND ADMISSION DETERMINATION FROM [facility]. ALISA Kruse DCP- Discharge Planning Updated by [id number]: Naomie Reed on 10/24/18 11:[address] Patient Name: NOEMI ROBISON Admission Status: ER Accout number: [id number] Admission Date: 10-20-2018 : 1945 Admission Diagnosis:ACUTE KIDNEY FAILURE, UNSPECIFIED Attending: BRIGETTE BRADEN Current LOS: 4 Anticipated DC Date: Planned Disposition: Home Primary Insurance: [facility] MEDICARE SOLUTIONS Discharge Planning Comments: CM met with patient to complete initial dc planning assessment. CM educated patient on the CM role and verbal consent given by patient to complete assessment. CM verified patient's address, phone number, and emergency contact phone numbers. Patient lives at home with family and reports She is independent in hER care. At discharge patient plans to return home and feels this is a safe discharge. CM discussed availability of home health, rehab services, and medical equipment. Patient denied known discharge needs at this time.. . CM will continue to follow and will assist as needed with dc plans/needs. Dead Mail Checker: Naomie Reed DCPIA - Discharge Planning Initial Assessment Updated by [email or web address]: Naomie Reed on 10/24/18 12:40 pm * Is the patient Alert and Oriented? Yes * How many steps to enter\exit or inside your home? * PCP TANIYA * [facility] * Preadmission Environment Home with Family * ADLs Independent * Equipment Oxygen * Verbal permission to speak to the caregivers and representatives has been obtained from the patient. N/A * Additional services required to return to the preadmission environment? No * Can the patient safely return to the preadmission environment? Yes * Has this patient been hospitalized within the prior 30 days at any hospital? No Last DP export: 11/09/18 1:33 pm Patient Name: NOEMI ROBISON Page [phone] at 1446 All edits/amendments must be made on the electronic document DICTATION DATE: 11/09/181445 RUBBER TIRE CURER: KALIE 11/09/18 1446 RPT#: [id number] DC DATE: STATUS: ADM IN [facility] [address] [place] [address] END OF REPORT
[2018-11-09 16:24] VITALS: BP 118/69
[2018-11-09 20:00] VITALS: BP 98/52
[2018-11-10] VITALS: BP 96/52
[2018-11-10 04:30] VITALS: BP 128/61
[2018-11-10 06:31] LABS: BASOPHILS 0.2 % (0-2); EOSINOPHILS 2.1 % (0-7); HEMOGLOBIN 9.1 g/dL (12-16); IMMATURE GRANULOCYTES 0.2 % (0-5); LYMPHOCYTES 10.9 % (15-50); MCH 28.5 pg (26.0-34.0); MCHC 32.5 g/dL (31.0-37.0); MCV 87.8 fL (80.0-100.0); MEAN PLATELET VOLUME 9.4 fL (7.4-10.4); MONOCYTES 9.9 % (2-11); NEUTROPHILS 76.7 % (40-80); PLATELET COUNT 141 10x3/uL (130-400); RBC 3.19 10x6/uL (4.00-5.40); RDW 22.1 % (11.5-14.5); WBC 4.7 10x3/uL (4.8-10.8)
[2018-11-10 06:32] LABS: ANION GAP 10.4 mmol/L (8-16); CALCIUM 9.1 mg/dL (8.5-10.1); CARBON DIOXIDE 32.9 mmol/L (21.0-32.0); CREATININE - SERUM 0.9 mg/dL (0.6-1.3); MAGNESIUM - SERUM 1.6 mg/dL (1.8-2.4); PHOSPHOROUS 3.4 mg/dL (2.5-4.9); POTASSIUM - SERUM 4.3 mmol/L (3.5-5.1)
--- NOTE | 2018-11-10 07:27 | NUR ---
REQUESTED MED FOR PAIN 10/11 ABDOMEN. GIVEN TYLENOL 2 TABS PO. A/A/OX4 WITH NO OTHER COMPLAINTS OR REQUESTS. ASSESSMENT COMPLETED AND WILL CONTINUE POC. IV PATENT TO LEFT AC WITH IV INFUSING WELL WITHOUT REDNESS OR EDEMA AT SITE. SL TO RIGHT FOREARM, SOME REDNESS AND SWELLING ABOVE SITE BUT HAS GOOD BLOOD RETURN. BED IN LOWEST LOCKED POSITION, SIDERAILS UP X 2 AND CALL LIGHT IN REACH.
[2018-11-10 08:59] VITALS: BP 111/56
--- NOTE | 2018-11-10 09:22 | MORECARE ---
CASE MANAGEMENT DISCHARGE SUMMARY PATIENT: NOEMI ROBISON UNIT: [id number] ADM DATE: 10/20/18 AGE: 73 : 46 SEX: F ROOM/BED: D.0807 AUTHOR: DANIELLE,DOC PHYSICIAN: REFERRING PHYSICIAN: BRIGETTE BRADEN MD DATE OF SERVICE: 11/10/18 Discharge Plan Patient Name: NOEMI ROBISON Facility: [facility]:[place] : 1945 Planned Disposition: [facility]ci Facility Anticipated Discharge Date: Discharge Date: Expected LOS: Initial Reviewer: [email or web address] Initial Review Date: 10/24/2018 Generated: 11/10/18 10:21 am Comments DCP- Discharge Planning Updated by [id number]: Ranjeet Light on 11/10/18 8:[address] Patient Name: NOEMI ROBISON Encounter No: [id number] : 1945 Primary Insurance: [facility] MEDICARE SOLUTIONS Anticipated DC Date: Planned Disposition: [facility]ci Facility External Planned Provider:[facility], MEDICARE REHAB BED DCP follow-up note: CM FAXED REFERRAL UPDATE TO [facility]IA [facility] AT [phone]. NEW OCCUPATIONAL THERAPY EVALUATION ORDERED PT HAS MANAGED MEDICARE AND REQUIRES EVALUATION FOR REHAB PLACEMENT. CM WAITING OT EVALUATION AND ADMISSION DETERMINATION FROM [facility] NURSING FACLITY. Ranjeet Light CASE ANNAMARIA DCP- Discharge Planning Updated by [email or web address]: Ranjeet Light on 11/09/18 1:[address] Patient Name: NOEMI ROBISON Encounter No: [id number] : 1945 Primary Insurance: [facility] MEDICARE SOLUTIONS Anticipated DC Date: Planned Disposition: [facility]ci Facility External Planned Provider: [facility], MEDICARE REHAB BED DCP follow-up note: CM SPOKE TO PT IN ROOM REGARDING DISCHARGE PLANNING AND NEEDS. PT REPORTS SHE FEELS VERY WEAK AND MAY NEED REHAB. CM DISCUSSED REHAB OPTIONS, PROVIDERS AND LOCATIONS. PT WANTS CM TO ATTEMPT REHAB FOR HER AT ANY [facility] FACILITY IN [place]. LISTING PROVIDED. PT SIGNED CONSENT FOR ANY [facility] REHAB IN [place]. IMPORTANT MESSAGE FROM MEDICARE PROVIDED AND EXPLAINED. CM NOTIFIED SHAHBAZ OF [facility], , OF REHAB REFERRAL. CM FAXED REFERRAL TO [facility]IA [employer] AT [phone]. NEW OCCUPATIONAL THERAPY EVALUATION ORDERED PT HAS MANAGED MEDICARE AND REQUIRES EVALUATION FOR REHAB PLACEMENT. CM WAITING OT EVALUATION AND ADMISSION DETERMINATION FROM [facility]. Ranjeet Light, CASE MANAGEMENT DCP- Discharge Planning Updated by [id number]: Naomie Reed on 10/24/18 11:[address] Patient Name: NOEMI ROBISON Admission Status: ER Accout number: [id number] Admission Date: 10-20-2018 : 1945 Admission Diagnosis:ACUTE KIDNEY FAILURE, UNSPECIFIED Attending: BRIGETTE BRADEN Current LOS: 4 Anticipated DC Date: Planned Disposition: Home Primary Insurance: [facility] MEDICARE SOLUTIONS Discharge Planning Comments: CM met with patient to complete initial dc planning assessment. CM educated patient on the CM role and verbal consent given by patient to complete assessment. CM verified patient's address, phone number, and emergency contact phone numbers. Patient lives at home with family and reports She is independent in hER care. At discharge patient plans to return home and feels this is a safe discharge. CM discussed availability of home health, rehab services, and medical equipment. Patient denied known discharge needs at this time.. . CM will continue to follow and will assist as needed with dc plans/needs. Head Refrigerating Engineer: Naomie Reed DCPIA - Discharge Planning Initial Assessment Updated by [id number]: Naomie Reed on 10/24/18 12:40 pm * Is the patient Alert and Oriented? Yes * How many steps to enter\exit or inside your home? * PCP TANIYA * Pharmacy [facility] * Preadmission Environment Home with Family * ADLs Independent * Equipment Oxygen * Verbal permission to speak to the caregivers and representatives has been obtained from the patient. N/A * Additional services required to return to the preadmission environment? No * Can the patient safely return to the preadmission environment? Yes * Has this patient been hospitalized within the prior 30 days at any hospital? No Coverage Notice Reviewer: [email or web address] - Ranjeet Light Notice Issued Date-Time: 11/09/2018 12:15 Notice Type: IM Discharge Notice Notice Delivered To: Patient Relationship to Patient: Woods Overseer Name: Delivery Method: HAND - Hand Delivered Sosa Days: Prior Verbal Notification: Recipient Understood Notice: Yes Recipient Signature: Yes Med Rec Note Co-signed by Attending: Coverage Notice Comment: Reviewer: [id number] - Ranjeet Light Notice Issued Date-Time: 11/09/2018 12:15 Notice Type: Patient Choice Letter Notice Delivered To: Patient Relationship to Patient: Woods Overseer Name: Delivery Method: HAND - Hand Delivered Sosa Days: Prior Verbal Notification: Recipient Understood Notice: Yes Recipient Signature: Yes Med Rec Note Co-signed by Attending: Coverage Notice Comment: ANY [facility] REHAB IN [place] Last DP export: 11/09/18 1:46 pm Patient Name: NOEMI ROBISON Page [phone] at 0922 All edits/amendments must be made on the electronic document DICTATION DATE: 11/10/18920 COMMERCIAL ASSISTANT: KALIE 11/10/18920 RPT#: [id number] DC DATE: STATUS: ADM IN [facility] [address] [place] [address] END OF REPORT
--- NOTE | 2018-11-10 11:41 | MORECARE ---
CASE MANAGEMENT DISCHARGE SUMMARY PATIENT: NOEMI ROBISON UNIT: [id number] ADM DATE: 10/20/18 AGE: 73 : 47 SEX: F ROOM/BED: D.0978 AUTHOR: DANIELLE,DOC PHYSICIAN: REFERRING PHYSICIAN: BRIGETTE BRADEN MD DATE OF SERVICE: 11/10/18 Discharge Plan Patient Name: NOEMI ROBISON Facility: [facility]:[place] : 1945 Planned Disposition: [facility] Facility Anticipated Discharge Date: Discharge Date: Expected LOS: Initial Reviewer: [id number] Initial Review Date: 10/24/2018 Generated: 11/10/18 12:41 pm DCP- Discharge Planning Updated by [email or web address]: Ranjeet Light on 11/10/18 8:[address] Patient Name: NOEMI ROBISON Encounter No: [id number] : 1945 Primary Insurance: [facility] MEDIC[facility] SOLUTIONS Anticipated DC Date: Planned Disposition: [facility] Facility External Planned Provider:[facility], MEDICARE REHAB BED DCP follow-up note: CM FAXED REFERRAL UPDATE TO [facility]IA [employer] AT [phone]. NEW OCCUPATIONAL THERAPY EVALUATION ORDERED PT HAS MANAGED MEDICARE AND REQUIRES EVALUATION FOR REHAB PLACEMENT. CM WAITING OT EVALUATION AND ADMISSION DETERMINATION FROM [facility]. Ranjeet Light CASE ANNAMARIA DCP- Discharge Planning Updated by [email or web address]: Ranjeet Light on 11/09/18 1:[address] Patient Name: NOEMI ROBISON Encounter No: [id number] : 1945 Primary Insurance: [facility] MEDICARE SOLUTIONS Anticipated DC Date: Planned Disposition: [facility] Facility External Planned Provider: [facility], MEDICARE REHAB BED DCP follow-up note: CM SPOKE TO PT IN ROOM REGARDING DISCHARGE PLANNING AND NEEDS. PT REPORTS SHE FEELS VERY WEAK AND MAY NEED REHAB. CM DISCUSSED REHAB OPTIONS, PROVIDERS AND LOCATIONS. PT WANTS CM TO ATTEMPT REHAB FOR HER AT ANY [facility]AC[facility] IN [place]. LISTING PROVIDED. PT SIGNED CONSENT FOR ANY [facility] REHAB IN [place]. IMPORTANT MESSAGE FROM MEDICARE PROVIDED AND EXPLAINED. CM NOTIFIED SHAHBAZ OF [facility], , OF REHAB REFERRAL. CM FAXED REFERRAL TO [facility] VIA [employer] AT [phone]. NEW OCCUPATIONAL THERAPY EVALUATION ORDERED PT HAS MANAGED MEDICARE AND REQUIRES EVALUATION FOR REHAB PLACEMENT. CM WAITING OT EVALUATION AND ADMISSION DETERMINATION FROM [facility]. Ranjeet Light, CASE MANAGEMENT DCP- Discharge Planning Updated by [id number]: Naomie Reed on 10/24/18 11:[address] Patient Name: NOEMI ROBISON Admission Status: ER Accout number: [id number] Admission Date: 10-20-2018 : 1945 Admission Diagnosis:ACUTE KIDNEY FAILURE, UNSPECIFIED Attending: BRIGETTE BRADEN Current LOS: 4 Anticipated DC Date: Planned Disposition: Home Primary Insurance: [facility] MEDICARE SOLUTIONS Discharge Planning Comments: CM met with patient to complete initial dc planning assessment. CM educated patient on the CM role and verbal consent given by patient to complete assessment. CM verified patient's address, phone number, and emergency contact phone numbers. Patient lives at home with family and reports She is independent in hER care. At discharge patient plans to return home and feels this is a safe discharge. CM discussed availability of home health, rehab services, and medical equipment. Patient denied known discharge needs at this time.. . CM will continue to follow and will assist as needed with dc plans/needs. Merchandising Execution Manager: Naomie Reed DCPIA - Discharge Planning Initial Assessment Updated by [email or web address]: Naomie Reed on 10/24/18 12:40 pm * Is the patient Alert and Oriented? Yes * How many steps to enter\exit or inside your home? * PCP TANIYA * Pharmacy [facility] * Preadmission Environment Home with Family * ADLs Independent * Equipment Oxygen * Verbal permission to speak to the caregivers and representatives has been obtained from the patient. N/A * Additional services required to return to the preadmission environment? No * Can the patient safely return to the preadmission environment? Yes * Has this patient been hospitalized within the prior 30 days at any hospital? No Coverage Notice Reviewer: [id number] - Ranjeet Light Notice Issued Date-Time: 11/09/2018 12:15 Notice Type: IM Discharge Notice Notice Delivered To: Patient Relationship to Patient: Hired Help Name: Delivery Method: HAND - Hand Delivered Sosa Days: Prior Verbal Notification: Recipient Understood Notice: Yes Recipient Signature: Yes Med Rec Note Co-signed by Attending: Coverage Notice Comment: Reviewer: [id number] - Ranjeet Light Notice Issued Date-Time: 11/09/2018 12:15 Notice Type: Patient Choice Letter Notice Delivered To: Patient Relationship to Patient: Hired Help Name: Delivery Method: HAND - Hand Delivered Sosa Days: Prior Verbal Notification: Recipient Understood Notice: Yes Recipient Signature: Yes Med Rec Note Co-signed by Attending: Coverage Notice Comment: [facility] DP export: 11/10/18 8:22 am Patient Name: NOEMI ROBISON Page [phone] at 1141 All edits/amendments must be made on the electronic document DICTATION DATE: 11/10/18 1141 COST MANAGER: KALIE 11/10/18 1141 RPT#: [id number] DC DATE: STATUS: ADM IN [facility] [address] [place] [address] END OF REPORT
--- NOTE | 2018-11-10 11:59 | NUR ---
I have reviewed this patient and I concur with the Shift Assessment completed by the Licensed Practical Nurse today this shift.
[2018-11-10] MEDS ORDERED: ALDACTONE100 MG PO (13:36)
[2018-11-10] MEDS ORDERED: PROTONIX40 MG PO (13:37)
--- NOTE | 2018-11-10 14:21 | NUR ---
Nutrition Follow-up: Noted pt's diarrhea improved. Diet: Regular Last BM: 11/10 Wt: 179# Labs reviewed Meds reviewed Continue current diet as tolerated. Offer nutrition supplements. [place] food preferences. RD following.
--- NOTE | 2018-11-10 14:51 | NUR ---
PT BEING DISCHARGE TO [facility] IN [place]. DISCHARGE PAPERS REVIEWED WITH PT AND SIGNED. REPORT CALLED TO [facility] GORDON. BOTH IVS REMOVED WITH CATH TIPS INTACT.
--- NOTE | 2018-11-10 14:53 | MORECARE ---
CASE MANAGEMENT DISCHARGE SUMMARY PATIENT: NOEMI ROBISON UNIT: [id number] ADM DATE: 10/20/18 AGE: 73 : 47 SEX: F ROOM/BED: D.8950 AUTHOR: DANIELLE,DOC PHYSICIAN: REFERRING PHYSICIAN: BRIGETTE BRADEN MD DATE OF SERVICE: 11/10/18 Discharge Plan Patient Name: NOEIM ROBISON Facility: [facility]:[place] : 1945 Planned Disposition: Retirement Facility Anticipated Discharge Date: 11/10/18 Discharge Date: Expected LOS: 21 Initial Reviewer: [id number] Initial Review Date: 10/24/2018 Generated: 11/10/18 3:52 pm Comments DCP- Discharge Planning Updated by [id number]: Ranjeet Light on 11/10/18 1:[address] Patient Name: NOEMI ROBISON Encounter No: [id number] : 1945 Primary Insurance: [facility] MEDICARE SOLUTIONS Anticipated DC Date: Planned Disposition: Retirement Facility External Planned Provider: [facility], MEDICARE REHAB BED DCP follow-up note: CM RECEIVED CALL FROM [facility], THEY HAVE RECEIVED INSURANCE AUTHORIZATION AND WILL ACCEPT PT TODAY. CM SPOKE TO PT IN ROOM, PT IS IN AGREEMENT WITH DISCHARGE TO [facility] FOR REHAB TODAY. CM NOTIFIED EZEQUIEL VALENCIA, CM RECEIVED DISCHARGE ORDERS. 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 CM FAXED DISCHARGE INFORMATION TO [facility] [employer] AT [phone]. MILEAGE CLERK NURSE AND BEDSIDE NURSE NOTIFIED. NURSE REPORT TO BE CALLED TO [facility] AT [phone]. [facility] TO FIRE CONTROL MECHANIC PT AT 3PM TODAY. Ranjeet Light, CASE MANAGEMENT DCP- Discharge Planning Updated by [id number]: Ranjeet Light on 11/10/18 8:[address] Patient Name: NOEMI ROBISON Encounter No: [id number] : 1945 Primary Insurance: [facility] MEDIC[facility] SOLUTIONS Anticipated DC Date: Planned Disposition: Retirement Facility External Planned Provider:[facility], MEDICARE REHAB BED DCP follow-up note: CM FAXED REFERRAL UPDATE TO [facility]IA [employer] AT [phone]. NEW OCCUPATIONAL THERAPY EVALUATION ORDERED PT HAS MANAGED MEDICARE AND REQUIRES EVALUATION FOR REHAB PLACEMENT. CM WAITING OT EVALUATION AND ADMISSION DETERMINATION FROM [facility]. ALISA Kruse DCP- Discharge Planning Updated by [id number]: Ranjeet Light on 11/09/18 1:[address] Patient Name: NOEMI ROBISON Encounter No: [id number] : 1945 Primary Insurance: [facility] MED[employer] SOLUTIONS Anticipated DC Date: Planned Disposition: Retirement Facility External Planned Provider: [facility], MEDICARE REHAB BED DCP follow-up note: CM SPOKE TO PT IN ROOM REGARDING DISCHARGE PLANNING AND NEEDS. PT REPORTS SHE FEELS VERY WEAK AND MAY NEED REHAB. CM DISCUSSED REHAB OPTIONS, PROVIDERS AND LOCATIONS. PT WANTS CM TO ATTEMPT REHAB FOR HER AT ANY [facility] FACILITY IN [place]. LISTING PROVIDED. PT SIGNED CONSENT FOR ANY [facility] REHAB IN [place]. IMPORTANT MESSAGE FROM MEDICARE PROVIDED AND EXPLAINED. CM NOTIFIED SHAHBAZ OF [facility], , OF REHAB REFERRAL. CM FAXED REFERRAL TO [facility] [employer] AT [phone]. NEW OCCUPATIONAL THERAPY EVALUATION ORDERED PT HAS MANAGED MEDICARE AND REQUIRES EVALUATION FOR REHAB PLACEMENT. CM WAITING OT EVALUATION AND ADMISSION DETERMINATION FROM [facility]. ALISA Kruse DCP- Discharge Planning Updated by [id number]: Naomie Reed on 10/24/18 11:[address] Patient Name: NOEMI ROBISON Admission Status: ER Accout number: [id number] Admission Date: 10-20-2018 : 1945 Admission Diagnosis:ACUTE KIDNEY FAILURE, UNSPECIFIED Attending: BRIGETTE BRADEN Current LOS: 4 Anticipated DC Date: Planned Disposition: Home Primary Insurance: [facility] MEDIC[employer] SOLUTIONS Discharge Planning Comments: CM met with patient to complete initial dc planning assessment. CM educated patient on the CM role and verbal consent given by patient to complete assessment. CM verified patient's address, phone number, and emergency contact phone numbers. Patient lives at home with family and reports She is independent in hER care. At discharge patient plans to return home and feels this is a safe discharge. CM discussed availability of home health, rehab services, and medical equipment. Patient denied known discharge needs at this time.. . CM will continue to follow and will assist as needed with dc plans/needs. Reconciliation Machine Operator: Naomie Reed DCPIA - Discharge Planning Initial Assessment Updated by [email or web address]: Naomie Reed on 10/24/18 12:40 pm * Is the patient Alert and Oriented? Yes * How many steps to enter\exit or inside your home? * PCP TANIYA * Pharm[facility] * Preadmission Environment Home with Family * ADLs Independent * Equipment Oxygen * Verbal permission to speak to the caregivers and representatives has been obtained from the patient. N/A * Additional services required to return to the preadmission environment? No * Can the patient safely return to the preadmission environment? Yes * Has this patient been hospitalized within the prior 30 days at any hospital? No Coverage Notice Reviewer: [id number] Light Notice Issued Date-Time: 11/09/2018 12:15 Notice Type: IM Discharge Notice Notice Delivered To: Patient Relationship to Patient: Quill Cleaning Machine Operator Name: Delivery Method: HAND - Hand Delivered Sosa Days: Prior Verbal Notification: Recipient Understood Notice: Yes Recipient Signature: Yes Med Rec Note Co-signed by Attending: Coverage Notice Comment: Reviewer: [id number] Light Notice Issued Date-Time: 11/09/2018 12:15 Notice Type: Patient Choice Letter Notice Delivered To: Patient Relationship to Patient: Quill Cleaning Machine Operator Name: Delivery Method: HAND - Hand Delivered Sosa Days: Prior Verbal Notification: Recipient Understood Notice: Yes Recipient Signature: Yes Med Rec Note Co-signed by Attending: Coverage Notice Comment: ANY [facility] REHAB IN [place] Last DP export: 11/10/18 10:41 am Patient Name: NOEMI ROBISON Page [phone] at 1453 All edits/amendments must be made on the electronic document DICTATION DATE: 11/10/18 145 CAREER DEVELOPMENT CONSULTANT: KALIE 11/10/18 145 RPT#: [id number] DC DATE: STATUS: ADM IN [facility] [address] [place] [address] END OF REPORT
--- NOTE | 2018-11-10 15:09 | NUR ---
HOOPER REMOVED WITHOUT DIFFICULTY WITH OUTPUT OF 1400CC.
--- NOTE | 2018-11-10 15:17 | NUR ---
LEFT FLOOR VIA W/C WITH ALL PERSONAL BELONGINGS. LEFT FACILITY VIA VAN FROM [employer].
== END 2018-11-10 15:18 | DRG 377 ==
LOC: D.ER 15:25 → D.ICU 19:13 → D.MS 19:13 → D.M2 19:13 → D.ICU 23:03 → D.MS 10-23 11:45 → D.CVICU 11-01 16:14 → D.M2 11-02 15:30
PROVIDERS: Emergency Medicine; Family Medicine; General Practice; Internal Medicine Gastroenterology; Internal Medicine Hematology & Oncology; Specialist; ADMIT Internal Medicine Nephrology; ATTEND Internal Medicine Nephrology
PROC: 0DJ08ZZ Inspection of Upper Intestinal Tract, Via Natural or Artificial Opening Endoscopic (ICD-10-PCS; principal; 2018-10-23 08:46)
PROC: 0DJD8ZZ Inspection of Lower Intestinal Tract, Via Natural or Artificial Opening Endoscopic (ICD-10-PCS; 2018-11-01)
PROC: 07DR3ZX Extraction of Iliac Bone Marrow, Percutaneous Approach, Diagnostic (ICD-10-PCS; 2018-11-06)
DX: K92.2 Gastrointestinal hemorrhage, unspecified (principal); I50.23 Acute on chronic systolic (congestive) heart failure; N17.9 Acute kidney failure, unspecified; R18.8 Other ascites; D59.9 Acquired hemolytic anemia, unspecified; I47.2 Ventricular tachycardia; N39.0 Urinary tract infection, site not specified; A04.72 Enterocolitis due to Clostridium difficile, not specified as recurrent; K74.60 Unspecified cirrhosis of liver; D69.6 Thrombocytopenia, unspecified; I25.10 Atherosclerotic heart disease of native coronary artery without angina pectoris; J44.9 Chronic obstructive pulmonary disease, unspecified; K21.0 Gastro-esophageal reflux disease with esophagitis; R06.03 Acute respiratory distress; D70.9 Neutropenia, unspecified; D50.9 Iron deficiency anemia, unspecified; I11.0 Hypertensive heart disease with heart failure